=== PATIENT | female | born 1935 | race Caucasian/White ===

== ENCOUNTER 2016-08-05 06:41 | Inpatient (IN) | payer MEDICARE, MEDICAID ==
--- NOTE | 2016-08-05 06:54 | ERNOTE ---
Medical Problem HPI - Narrative Date of Service: 08/05/16 - General Chief Complaint: General Assessment Time Seen by Provider: 08/05/16 06:53 Source: EMS, half-way records - Immun/Allergies/Home Medications Immunizations: IMMUNIZATION HX Immunizations Up to Date Yes History of Influenza Vaccine Yes Hx Pneumococcal Vaccination Yes Allergies/Adverse Reactions: Allergies aspirin Allergy (Verified 08/05/16 06:53) ulcers dextran 70 *RETIRED-02/23/13 [From Visine] Allergy (Verified 08/05/16 06:53) glycerin [From Visine] Allergy (Verified 08/05/16 06:53) hypromellose *RETIRED-02/23/13 [From Visine] Allergy (Verified 08/05/16 06:53) ibuprofen Allergy (Verified 08/05/16 06:53) ulcers Penicillins Allergy (Verified 08/05/16 06:53) polyethylene glycol 400 [From Visine] Allergy (Verified 08/05/16 06:53) povidone [From Visine] Allergy (Verified 08/05/16 06:53) tetrahydrozoline HCl [From Visine] Allergy (Verified 08/05/16 06:53) Home Medications: HOME MEDICATIONS Alendronate Sodium [Fosamax] 70 mg PO Q7D 11/29/12 [Last Taken Unknown] Clorazepate Dipotassium [Tranxene] 3.75 mg PO HS 11/29/12 [Last Taken Unknown] Lisinopril/Hydrochlorothiazide [Lisinopril-Hctz 20-12.5 mg Tab] 0.5 tab PO DAILY 11/29/12 [Last Taken Unknown] Simvastatin [Zocor] 40 mg PO DAILY 11/29/12 [Last Taken Unknown] Calcium & Magnesium Carbonate [Antacid Gelatin Caplet] 1 each PO TID 01/16/14 [ Last Taken Unknown] Flaxseed Oil [Flax Oil] 1,000 mg PO DAILY 01/16/14 [Last Taken Unknown] Multivits,Ca,Minerals/Iron/FA [Therapeutic-M Caplet] 1 each PO TID 01/16/14 [ Last Taken Unknown] Mv-Mn/Iron/FA/Herbal Cmplx#190 [Vitamin D3 Complete Caplet] 1 each PO DAILY [Last Taken Unknown] Potassium Chloride 20 meq PO BID 01/16/14 [Last Taken Unknown] - History of Present History Narrative: confusion and shortness of breath and trembling. Pt has a history of dementia - Patient's Past Medical History Patient History - Medical: Anxiety, Dementia, Osteoporosis, Other Patient History - Cancer: No Hx of Cancer - Social History Smoking Status: Never smoker ED Progress - Vital Signs Patient's Vital Signs:: I have reviewed the patient's vital signs. Vital Signs: Vital Signs 08/05/16 06:48 Temperature 38.1 C H Pulse Rate 103 H Respiratory 16 Rate Blood Pressure 155/88 O2 Sat by Pulse 94 Oximetry - Progress/Reassessment Chief Complaint: General Assessment - Transfer of Care Physician Sign Out: Jennifer Oliva Receiving Physician: Ruth Arteaga Pending Results: Labs, X-ray results Departure - Departure Clinical Impression: Dementia Qualifiers: Dementia type: unspecified type Dementia behavioral disturbance: without behavioral disturbance Qualified Code(s): F03.90 - Unspecified dementia without behavioral disturbance Condition: Good
[2016-08-05 07:08] LABS: Hematocrit 37.9 % (37.0-47.0); Hemoglobin 12.6 gm/dL (12.5-16.0); Mean Cell Volume 85.9 fl (78-100); Mean Corpuscular Hemoglobin 28.6 pg (27-31); Mean Corpuscular Hgb Conc 33.2 g/dl (32-36); Neutrophil # 5.5 K/mm3 (1.3-6.0); Neutrophil % 87.5 % (42-75.0); Platelet Count 145 K/mm3 (150-450); Red Blood Count 4.41 M/mm3 (4.2-5.4); Red Cell Distribution Width 19.1 % (11.5-14.0); White Blood Count 6.3 K/mm3 (4.0-10.5)
[2016-08-05 07:15] LABS: Urine Bilirubin Negative (NEGATIVE); Urine Ketone Negative (NEGATIVE); Urine Nitrite Negative (NEGATIVE); Urine Protein Negative (NEGATIVE); Urine Urobilinogen Normal (NORMAL); Urine pH 6.5 pH (5.0-7.0)
[2016-08-05 07:22] LABS: Urine Appearance Clear; Urine Blood 10 /ul (NEGATIVE); Urine Color Yellow
[2016-08-05 07:22] LABS: Albumin * 2.7 gm/dl (3.4-5.0); Anion Gap 16.4 mmol/L (6.8-13.8); BUN/Creatinine Ratio 17.9 (9.0-21.6); Bilirubin, Total 0.3 mg/dL (0.0-1.1); Ca. Corrected For Albumin 9.7 mg/dL (8.4-10.2); Carbon Dioxide 24.3 mmol/L (24-32.6); Potassium 3.7 mmol/L (3.4-4.6); Total Protein 6.4 gm/dL (6.2-8.2)
[2016-08-05 07:23] LABS: Urine Bacteria TRACE; Urine RBC TRACE /hpf (0-5); Urine WBC None Seen /hpf (0-5)
[2016-08-05] MEDS ORDERED: NORMAL SALINE 1,000 ML IV ONE (07:54)
[2016-08-05] MEDS ORDERED: LEVOFLOXACIN/D5W 500 MG/100 ML BAG IV SCH (08:00)
[2016-08-05] MEDS ORDERED: ACETAMINOPHEN 500 MG TABLET PO ONE (08:22)
[2016-08-05] MEDS: NORMAL SALINE 1,000 ML IV PRN (10:58)
--- NOTE | 2016-08-05 11:40 | HP ---
[id number] 11:39 Chief Complaint: confusion History of Present Illness: Irena Harrington, is an 81-year-old white female, resident of the [facility], with previous medical history of hypertension, hyperlipidemia, osteoarthritis, chronic anemia, who was brought to emergency room today on 08/05/2016 for increasing confusion and disorientation. The patient lives in the [facility] and recently there is being on the endemic of influenza in the facility. She tested positive for influenza A on [facility]2016[facility]. Yesterday the patient was noted to be more confused and disoriented and so patient was sent to the emergency room. In the emergency room the chest x-ray done showed right upper lobe infiltrate as read by the emergency room physician and although she did not have an elevated white blood cell count, neutrophils was elevated at 87%. She was also carrying a fever of 38.3 with a pulse of 103. Her lactic acid was 4. She was admitted for sepsis . S he was given IV Rocephin and Zithromax in the emergency room. Currently patient is still confused, not recognizing me as her doctor. - Patient's Past Medical History Patient History - Medical: Anxiety, Dementia, Osteoporosis, Other Patient History - Cardiac/Respiratory: Hypertension, Hyperlipidemia Patient History - Cancer: No Hx of Cancer Patient History - Surgical Procedures: Appendectomy, Colonoscopy, Other - tonsillectomy - Family History Father Family History - Medical: Family History - Cancer: Lung Mother Family History - Medical: , Dementia, Osteoporosis Family History - Cardiac/Respiratory: Hypertension - Social History Living Situations: [facility] Smoking Status: Never smoker Have you smoked in the past 12 months: No Do you dip or chew tobacco: No Patient requests Smoking Cessation Consult: No Initiate information on Smoking Cessation: No Alcohol Use: none Drug Use: benzodiazepine Review Of Systems (GEN) - Review of Systems Generalized/Overall Review: Present: No Symptoms Reported EENTM: Present: No Symptoms Reported Respiratory: Present: No Symptoms Reported Cardiac: Present: No Symptoms Reported Abdominal: Present: No Symptoms Reported Genitourinary: Present: No Symptoms Reported Musculoskeletal: Present: No Symptoms Reported Neurological: Present: No Symptoms Reported Skin: Present: No Symptoms Reported Endocrine: Present: No Symptoms Reported Misc: All systems neg except as marked - unreliable due to confusion Allergies/Adverse Reactions: Allergies Allergy/AdvReac Type Severity Reaction Status Date / Time aspirin Allergy ulcers Verified 08/05/16 09:42 dextran 70 *RETIRED-02/23/13 Allergy Verified 08/05/16 09:42 [From Visine] glycerin [From Visine] Allergy Verified 08/05/16 09:42 hypromellose Allergy Verified 08/05/16 09:42 *RETIRED-02/23/13 [From Visine] ibuprofen Allergy ulcers Verified 08/05/16 09:42 Penicillins Allergy Verified 08/05/16 09:42 polyethylene glycol 400 Allergy Verified 08/05/16 09:42 [From Visine] povidone [From Visine] Allergy Verified 08/05/16 09:42 tetrahydrozoline HCl Allergy Verified 08/05/16 09:42 [From Visine] Home Medications: HOME MEDICATIONS Alendronate Sodium [Fosamax] 70 mg PO Q7D 11/29/12 [Last Taken 07/30/16 07:00] Simvastatin [Zocor] 40 mg PO HS 11/29/12 [Last Taken 08/04/16 19:00] Potassium Chloride 20 meq PO BID 01/16/14 [Last Taken 08/04/16 19:00] ALPRAZolam [Xanax] 0.25 mg PO TID PRN 08/05/16 [Last Taken Unknown] Acetaminophen [Tylenol] 650 mg PO HS 08/05/16 [Last Taken 08/04/16 19:00] Acetaminophen [Tylenol] 650 mg PO QID PRN 08/05/16 [Last Taken 07/30/16 04:05] Calcium Carbonate [Lboy-Fxc-116] 1,250 mg PO 0700,1500,1900 08/05/16 [Last Taken 08/04/16 19:00] Cholecalciferol (Vitamin D3) [Vitamin D3] 2,000 unit PO DAILY 08/05/16 [Last Taken 08/04/16 07:00] Docusate Sodium [Doc-Q-Lace] 100 mg PO 0700,1500,1900 08/05/16 [Last Taken 08/04 19:00] Ferrous Sulfate [Iron] 325 mg PO BID 08/05/16 [Last Taken 08/04/16 19:00] Folic Acid 1 mg PO DAILY 08/05/16 [Last Taken 08/04/16 07:00] Magnesium 250 mg PO 0700,1500,1900 08/05/16 [Last Taken 08/04/16 19:00] Oseltamivir Phosphate [Tamiflu] 75 mg PO BID 08/05/16 [Last Taken 08/04/16 20:00 ] azaTHIOprine [Imuran] 50 mg PO DAILY 08/05/16 [Last Taken 08/04/16 07:00] predniSONE [Prednisone] 2 tab PO DAILY 08/05/16 [Last Taken 08/04/16 07:00] traMADol HCL [Ultram] 50 mg PO 0700,1500,1900 08/05/16 [Last Taken 08/04/16 19: 00] Exam - Exam Vital Signs: Vital Signs - Last Taken Temp 37.8 C H 08/05/16 09:09 Pulse 98 08/05/16 09:09 Resp 20 08/05/16 09:09 BP 136/70 08/05/16 09:09 Pulse Ox 94 08/05/16 09:09 Constitutional: Present: Alert - AAO x 1, Well developed, Well nourished ENT Exam: Present: hearing grossly normal Eye Exam: bilateral eye: normal inspection, PERRL, EOMI Neck: Present: supple Back Exam: Present: no CVA tenderness Breasts: Present: Exam deferred Respiratory: Present: decreased breath sounds, No rales, No wheezing Cardiovascular/Chest: Present: regular rate, rhythm, no JVD, no murmur Abdomen: Present: Normal bowel sounds, soft, nontender, nondistended Extremity: Present: normal range of motion, no pedal edema Neurologic: Present: community health counselor II-XII nml as tested, no motor/sensory deficits, alert - x 1 Diagnostic Studies: Laboratory Results WBC 6.3 K/mm3 (4.0-10.5) 08/05/16 06:55 RBC 4.41 M/mm3 (4.2-5.4) 08/05/16 06:55 Hgb 12.6 gm/dL (12.5-16.0) 08/05/16 06:55 Hct 37.9 % (37.0-47.0) 08/05/16 06:55 MCV 85.9 fl (78-100) 08/05/16 06:55 MCH 28.6 pg (27-31) 08/05/16 06:55 MCHC 33.2 g/dl (32-36) 08/05/16 06:55 RDW 19.1 % (11.5-14.0) H 08/05/16 06:55 Plt Count 145 K/mm3 (150-450) L 08/05/16 06:55 MPV 9.0 fl (6.0-9.5) 08/05/16 06:55 Immature Gran % (Auto) 1.10 % (0.001-0.429) H 08/05/16 06:55 Immature Gran # (Auto) 0.07 K/mm3 (0.000-0.0310) H 08/05/16 06:55 Neutrophils % 87.5 % (42-75.0) H 08/05/16 06:55 Lymphocytes % 10.4 % (20-51) L 08/05/16 06:55 Monocytes % 0.3 % (0.0-9) 08/05/16 06:55 Eosinophils % 0.5 % (0.0-3.0) 08/05/16 06:55 Basophils % 0.2 % (0.0-1.0) 08/05/16 06:55 Nucleated RBC % 0.0 k/mm3 (0-1) 08/05/16 06:55 Neutrophils # 5.5 K/mm3 (1.3-6.0) 08/05/16 06:55 Lymphocytes # 0.7 k/mm3 (1.5-3.5) L 08/05/16 06:55 Monocytes # 0.0 k/mm3 (0.0-1.0) 08/05/16 06:55 Eosinophils # 0.0 k/mm3 (0.0-0.7) 08/05/16 06:55 Absolute Basophils 0.0 k/mm3 (0.0-0.1) 08/05/16 06:55 Sodium 131 mmol/L (132-142) L 08/05/16 06:55 Plasma Sodium 131 mmol/L (130-142) 08/05/16 06:55 Potassium 3.7 mmol/L (3.4-4.6) 08/05/16 06:55 Chloride 94 mmol/L (97-106) L 08/05/16 06:55 Carbon Dioxide 24.3 mmol/L (24-32.6) 08/05/16 06:55 Anion Gap 16.4 mmol/L (6.8-13.8) H 08/05/16 06:55 BUN 14 mg/dL (3-23) 08/05/16 06:55 Creatinine 0.78 mg/dL (0.4-1.4) 08/05/16 06:55 Est GFR (Non-Af Amer) 75 mL/min (60-130) D 08/05/16 06:55 BUN/Creatinine Ratio 17.9 (9.0-21.6) 08/05/16 06:55 Random Glucose 85 mg/dL (70-110) 08/05/16 06:55 Lactic Acid, Venous 1.2 mmol/L (0.4-2.0) 08/05/16 11:03 Calcium 9.0 mg/dL (7.9-10.9) 08/05/16 06:55 Calcium Adj for Albumin 9.7 mg/dL (8.4-10.2) 08/05/16 06:55 Total Bilirubin 0.3 mg/dL (0.0-1.1) 08/05/16 06:55 AST 25 U/L (0-48) 08/05/16 06:55 ALT 22 U/L (19-67) 08/05/16 06:55 Alkaline Phosphatase 62 U/L (50-170) 08/05/16 06:55 Total Protein 6.4 gm/dL (6.2-8.2) 08/05/16 06:55 Albumin 2.7 gm/dl (3.4-5.0) L 08/05/16 06:55 Urine Color Yellow 08/05/16 07:08 Urine Appearance Clear 08/05/16 07:08 Urine pH 6.5 pH (5.0-7.0) 08/05/16 07:08 Ur Specific [place] 1.010 SP.GR. (1.005-1.010) 08/05/16 07:08 Urine Protein Negative mg/dL (NEGATIVE) 08/05/16 07:08 Urine Glucose (UA) Negative mg/dL (NEGATIVE) 08/05/16 07:08 Urine Ketones Negative mg/dL (NEGATIVE) 08/05/16 07:08 Urine Blood 10 /ul (NEGATIVE) H 08/05/16 07:08 Urine Nitrate Negative (NEGATIVE) 08/05/16 07:08 Urine Bilirubin Negative mg/dl (NEGATIVE) 08/05/16 07:08 Urine Urobilinogen Normal EU/dl (NORMAL) 08/05/16 07:08 Ur Leukocyte Esterase Negative /ul (NEGATIVE) 08/05/16 07:08 Urine RBC Trace /hpf (0-5) 08/05/16 07:08 Urine WBC None seen /hpf (0-5) 08/05/16 07:08 Ur Epithelial Cells None seen /hpf (0-5) 08/05/16 07:08 Urine Bacteria Trace (NONE) 08/05/16 07:08 Urine Culture Comments Culture to follow 08/05/16 07:08 Assessment/Plan - Assessment/Plan (1) Altered mental status Assessment: likely due to acute encephalopathy- toxic/metabolic. Problem: Resolved Qualifiers: Altered mental status type: disorientation Qualified Code(s): R41.0 - Disorientation, unspecified (2) Pneumonia Assessment: continue with Levaquin/ add Cefepipme Problem: Suspected Qualifiers: Pneumonia type: due to unspecified organism Laterality: right Lung location: upper lobe of lung Qualified Code(s): J18.1 - Lobar pneumonia, unspecified organism (3) Hypertension Assessment: diet controlled Problem: Chronic Qualifiers: Hypertension type: essential hypertension Qualified Code(s): I10 - Essential (primary) hypertension (4) Osteoporosis Problem: Chronic (5) Influenza A Assessment: had Tamiflu in the NH Problem: Acute (6) Bacteriuria Problem: Acute
[2016-08-05] MEDS: CEFEPIME HCL 1 GM in DEXTROSE 5 % IN WATER 100 ML IV SCH ×2 (12:38)
[2016-08-05] MEDS: ACETAMINOPHEN 325 MG TABLET PO PRN (19:25)
[2016-08-06] MEDS: CEFEPIME HCL 1 GM in DEXTROSE 5 % IN WATER 100 ML IV SCH ×4 (00:06→11:22)
[2016-08-06] MEDS: ACETAMINOPHEN 325 MG TABLET PO PRN (00:10)
[2016-08-06] MEDS: NORMAL SALINE 1,000 ML IV PRN ×2 (09:00→19:55)
[2016-08-06] MEDS: LEVOFLOXACIN/D5W 500 MG/100 ML BAG IV SCH (09:02)
[2016-08-06] MEDS ORDERED: ALPRAZolam 0.25 MG TABLET PO PRN (09:13)
--- NOTE | 2016-08-06 09:26 | PN ---
Subjective - Date and Time Seen Date: 08/06/16 Time: 08:44 Subjective Narrative: Patient seen sitting up in chair, she is AOX3 no acute distress with a non productive cough. pt denies fever, chills, chest pain, palpitation. Objective - Review of Systems Generalized/Overall Review: Reports: No Symptoms Reported EENTM: Reports: No Symptoms Reported Respiratory: Reports: Cough Cardiac: Reports: No Symptoms Reported Abdominal: Reports: No Symptoms Reported Genitourinary Symptoms: Reports: No Symptoms Reported Musculoskeletal Complaints: Reports: No Symptoms Reported Neurological: Reports: No Symptoms Reported Skin: Reports: Rash - BL inner arms Endocrine: Reports: No Symptoms Reported - Vitals Vitals: Last Vital Signs Temp 36.4 C L 08/06/16 08:01 Pulse 64 08/06/16 08:01 Resp 20 08/06/16 08:01 BP 176/75 08/06/16 08:01 Pulse Ox 98 08/06/16 08:01 - Exam Constitutional: Present: Alert, Oriented x3, Cooperative, Well developed, No distress, Elderly, Thin and frail ENT Exam: Present: moist mucous membranes Neck: Present: full range of motion Breasts: Present: Exam deferred Respiratory: Present: chest non-tender, normal breath sounds, no respiratory distress, decreased breath sounds Cardiovascular/Chest: Present: normal peripheral pulses, regular rate, rhythm, no chest tenderness, no edema Abdomen: Present: Normal bowel sounds, soft, nontender, nondistended /Rectal: Present: Exam deferred Extremity: Present: normal range of motion, non-tender, normal inspection, no pedal edema, no calf tenderness Skin Exam: Present: skin rash - BL inner arms superepidermal bullous Neurologic: Present: oriented x 3 Appearance: Present: appropriate appearance Eye contact: Present: cooperative, good eye contact Thoughts: Present: normal thought pattern Assessment/Plan Plan Narrative: Pneumonia Suspected on CXR On adm WBC - remain WNL Overnight Temp 36.6----->36.4 On adm Lactic acid 4.0----->1.2 pt was diagnosed with influenza A while at longterm and treated with Tamiflu , she have 3 more days left. Encourage use of I/S Blood culture and urine culture gram neg Bacilli,continue with Levaquin and cefepime. Mucinex BID Hypertension This morning BP 176/75 possible due to IVF Will rate of IVF and continue to monitor vital signs. Osteoporosis- stable Problem: Chronic Altered mental status- resolved likely due to acute encephalopathy- toxic/metabolic. Pt with history of dementia Bullous Pemphigoid superepidermal blisters BL inner arms Continue with prednisone VTE ppx: SCD/ ambulate pt Code status Full - Problems/Diagnosis (1) Altered mental status Problem: Resolved Qualifiers: Altered mental status type: disorientation Qualified Code(s): R41.0 - Disorientation, unspecified (2) Dementia Problem: Chronic Qualifiers: Dementia type: unspecified type Dementia behavioral disturbance: without behavioral disturbance Qualified Code(s): F03.90 - Unspecified dementia without behavioral disturbance (3) Hypertension Problem: Chronic Qualifiers: Hypertension type: essential hypertension Qualified Code(s): I10 - Essential (primary) hypertension (4) Pneumonia Problem: Suspected Qualifiers: Pneumonia type: due to unspecified organism Laterality: right Lung location: upper lobe of lung Qualified Code(s): J18.1 - Lobar pneumonia, unspecified organism (5) Bullous pemphigoid Problem: Chronic
[2016-08-06] MEDS: OSELTAMIVIR PHOSPHATE 75 MG CAPSULE PO SCH ×2 (09:59→20:47)
[2016-08-06] MEDS: CALCIUM CARBONATE 500 MG TAB.CHEW PO SCH ×2 (14:41→19:54)
[2016-08-06] MEDS: MAGNESIUM OXIDE 400 MG TABLET PO SCH ×2 (14:41→19:54)
[2016-08-06] MEDS: DOCUSATE SODIUM 100 MG CAPSULE PO SCH ×2 (14:42→19:54)
[2016-08-06] MEDS: POTASSIUM CHLORIDE 20 MEQ TABLET.SA PO SCH (16:28)
[2016-08-06] MEDS: ACETAMINOPHEN 325 MG TABLET PO SCH (20:48)
[2016-08-06] MEDS: SIMVASTATIN 40 MG TABLET PO SCH (20:48)
[2016-08-06] MEDS: FERROUS SULFATE 325 MG TABLET PO SCH (20:48)
[2016-08-07] MEDS: CEFEPIME HCL 1 GM in DEXTROSE 5 % IN WATER 100 ML IV SCH ×4 (01:08→12:28)
[2016-08-07] MEDS ORDERED: hydrALAZINE HCL 25 MG TABLET ONE (01:53)
[2016-08-07] MEDS: hydrALAZINE HCL 50 MG TABLET PO PRN ×2 (02:12→17:50)
[2016-08-07 06:28] LABS: Hematocrit 33.6 % (37.0-47.0); Hemoglobin 11.5 gm/dL (12.5-16.0); Mean Cell Volume 83.6 fl (78-100); Mean Corpuscular Hemoglobin 28.6 pg (27-31); Mean Corpuscular Hgb Conc 34.2 g/dl (32-36); Mean Platelet Volume 9.3 fl (6.0-9.5); Platelet Count 106 K/mm3 (150-450); Red Blood Count 4.02 M/mm3 (4.2-5.4); Red Cell Distribution Width 18.9 % (11.5-14.0); White Blood Count 10.7 K/mm3 (4.0-10.5)
[2016-08-07 06:31] LABS: Total Cells Counted 100
[2016-08-07] MEDS: NORMAL SALINE 1,000 ML IV PRN (06:46)
[2016-08-07] MEDS: MAGNESIUM OXIDE 400 MG TABLET PO SCH ×3 (07:09→18:55)
[2016-08-07] MEDS: CALCIUM CARBONATE 500 MG TAB.CHEW PO SCH ×3 (07:09→18:55)
[2016-08-07] MEDS: DOCUSATE SODIUM 100 MG CAPSULE PO SCH ×3 (07:09→18:55)
[2016-08-07] MEDS: ACETAMINOPHEN 325 MG TABLET PO PRN (07:10)
[2016-08-07 07:12] LABS: Band 12 % (0-2.0); Eosinophil 1 % (0-3); Immature Granulocyte 1 (0-1); Lymphocyte 2 % (20-51); Neutrophil 84 % (42-75)
[2016-08-07 07:15] LABS: Platelet Estimate Decreased (NORMAL)
[2016-08-07 07:24] LABS: Schistocytes 2+
--- NOTE | 2016-08-07 08:08 | PN ---
Subjective - Date and Time Seen Date: 08/07/16 Time: 08:07 Subjective Narrative: Patient is still confused. AAO X 1. T max 37.8. Objective - Review of Systems Generalized/Overall Review: Reports: Fever - low grade EENTM: Reports: No Symptoms Reported Respiratory: Reports: No Symptoms Reported Cardiac: Reports: No Symptoms Reported Abdominal: Reports: No Symptoms Reported Genitourinary Symptoms: Reports: No Symptoms Reported Musculoskeletal Complaints: Reports: No Symptoms Reported Neurological: Reports: No Symptoms Reported Skin: Reports: No Symptoms Reported Endocrine: Reports: No Symptoms Reported Misc: All systems neg except as marked - ROS is unobtainable due to her confusion - Vitals Vitals: Last Vital Signs Temp 37.8 C H 08/07/16 07:02 Pulse 79 08/07/16 07:02 Resp 18 08/07/16 07:02 BP 128/66 08/07/16 07:02 Pulse Ox 97 08/07/16 07:02 - Abnormal Lab Findings Abnormal Lab Findings: Abnormal Lab Results 08/07/16 Range/Units 05:40 WBC 10.7 H D (4.0-10.5) K/mm3 RBC 4.02 L (4.2-5.4) M/mm3 Hgb 11.5 L (12.5-16.0) gm/dL Hct 33.6 L (37.0-47.0) % RDW 18.9 H (11.5-14.0) % Plt Count 106 L (150-450) K/mm3 Neutrophils % (Manual) 84 H (42-75) % Band Neuts % (Manual) 12 H (0-2.0) % Lymphocytes % (Manual) 2 L (20-51) % Neutrophils # (Manual) 9.0 H (1.3-6.0) K/mm3 Lymphocytes # (Manual) 0.2 L (1.5-3.5) k/mm3 Platelet Estimate Decreased L (NORMAL) - Exam Constitutional: Present: Alert - AAO x 1 ENT Exam: Present: hearing grossly normal Neck: Present: supple Breasts: Present: Exam deferred Respiratory: Present: decreased breath sounds, No rales, No wheezing Cardiovascular/Chest: Present: regular rate, rhythm, no JVD, no murmur Abdomen: Present: Normal bowel sounds, soft, nontender, nondistended Extremity: Present: no calf tenderness, pedal edema Assessment/Plan - Problems/Diagnosis (1) Altered mental status Problem: Resolved Qualifiers: Altered mental status type: disorientation Qualified Code(s): R41.0 - Disorientation, unspecified Narrative: due to acute encephalopathy on top of possible baseline dementia (2) Pneumonia Problem: Suspected Qualifiers: Pneumonia type: due to unspecified organism Laterality: right Lung location: upper lobe of lung Qualified Code(s): J18.1 - Lobar pneumonia, unspecified organism Narrative: awaiting C & S - Gram negative bacilli . continue with IV levaquin and Cefepime. (3) Hypertension Problem: Chronic Qualifiers: Hypertension type: essential hypertension Qualified Code(s): I10 - Essential (primary) hypertension (4) Osteoporosis Problem: Chronic (5) Influenza A Problem: Acute (6) Bacteriuria Problem: Acute
[2016-08-07] MEDS: CHOLECALCIFEROL 1,000 UNIT CAPSULE PO SCH (08:58)
[2016-08-07] MEDS: FOLIC ACID 1 MG TABLET PO SCH (08:59)
[2016-08-07] MEDS: predniSONE 20 MG TABLET PO SCH (08:59)
[2016-08-07] MEDS: OSELTAMIVIR PHOSPHATE 75 MG CAPSULE PO SCH ×2 (08:59→20:21)
[2016-08-07] MEDS: azaTHIOprine 50 MG TABLET PO SCH (08:59)
[2016-08-07] MEDS: LEVOFLOXACIN/D5W 500 MG/100 ML BAG IV SCH (08:59)
[2016-08-07] MEDS: POTASSIUM CHLORIDE 20 MEQ TABLET.SA PO SCH ×2 (08:59→17:06)
[2016-08-07] MEDS: FERROUS SULFATE 325 MG TABLET PO SCH ×2 (09:00→20:21)
[2016-08-07] MEDS: ACETAMINOPHEN 325 MG TABLET PO SCH (20:21)
[2016-08-07] MEDS: SIMVASTATIN 40 MG TABLET PO SCH (20:21)
[2016-08-08] MEDS: CEFEPIME HCL 1 GM in DEXTROSE 5 % IN WATER 100 ML IV SCH ×6 (00:49→23:36)
[2016-08-08] MEDS: NORMAL SALINE 1,000 ML IV PRN (05:24)
[2016-08-08] MEDS: MAGNESIUM OXIDE 400 MG TABLET PO SCH ×3 (07:08→18:45)
[2016-08-08] MEDS: DOCUSATE SODIUM 100 MG CAPSULE PO SCH ×3 (07:08→18:45)
[2016-08-08] MEDS: CALCIUM CARBONATE 500 MG TAB.CHEW PO SCH ×3 (07:08→18:45)
[2016-08-08] MEDS: ACETAMINOPHEN 325 MG TABLET PO PRN ×2 (07:16→12:55)
[2016-08-08] MEDS: OSELTAMIVIR PHOSPHATE 75 MG CAPSULE PO SCH ×2 (08:53→20:45)
[2016-08-08] MEDS: azaTHIOprine 50 MG TABLET PO SCH (08:53)
[2016-08-08] MEDS: CHOLECALCIFEROL 1,000 UNIT CAPSULE PO SCH (08:53)
[2016-08-08] MEDS: predniSONE 20 MG TABLET PO SCH (08:53)
[2016-08-08] MEDS: POTASSIUM CHLORIDE 20 MEQ TABLET.SA PO SCH ×2 (08:53→16:33)
[2016-08-08] MEDS: FOLIC ACID 1 MG TABLET PO SCH (08:53)
[2016-08-08] MEDS: LEVOFLOXACIN/D5W 500 MG/100 ML BAG IV SCH (08:53)
[2016-08-08] MEDS: FERROUS SULFATE 325 MG TABLET PO SCH ×2 (08:53→20:45)
--- NOTE | 2016-08-08 12:07 | PN ---
Subjective - Date and Time Seen Date: 08/08/16 Time: 12:04 Subjective Narrative: Patient continues to be confused. T max 37.8 Objective - Review of Systems Generalized/Overall Review: Reports: Weakness, Fever. Denies: Chills EENTM: Reports: No Symptoms Reported Respiratory: Reports: No Symptoms Reported Cardiac: Reports: No Symptoms Reported Abdominal: Reports: No Symptoms Reported Genitourinary Symptoms: Reports: No Symptoms Reported Musculoskeletal Complaints: Reports: No Symptoms Reported Neurological: Reports: No Symptoms Reported Skin: Reports: No Symptoms Reported Endocrine: Reports: No Symptoms Reported Misc: All systems neg except as marked - ROS is unbreliable due to confusion - Vitals Vitals: Last Vital Signs Temp 36.7 C 08/08/16 10:30 Pulse 65 08/08/16 10:30 Resp 20 08/08/16 10:30 BP 159/71 08/08/16 10:30 Pulse Ox 98 08/08/16 10:30 - Exam Constitutional: Present: Alert - AAO x 1 ENT Exam: Present: hearing grossly normal Neck: Present: supple Breasts: Present: Exam deferred Respiratory: Present: decreased breath sounds, No rales, No wheezing Cardiovascular/Chest: Present: regular rate, rhythm, no murmur Abdomen: Present: Normal bowel sounds, soft, nontender, nondistended Extremity: Present: no pedal edema, no calf tenderness Assessment/Plan - Problems/Diagnosis (1) Altered mental status Problem: Resolved Qualifiers: Altered mental status type: disorientation Qualified Code(s): R41.0 - Disorientation, unspecified Narrative: due to acute encephalopathy, toxic /metabolicc with E.Coli bacrteremia/ septicemia. (2) Pneumonia Problem: Suspected Qualifiers: Pneumonia type: due to unspecified organism Laterality: right Lung location: upper lobe of lung Qualified Code(s): J18.1 - Lobar pneumonia, unspecified organism Narrative: will recheck CXR (3) Hypertension Problem: Chronic Qualifiers: Hypertension type: essential hypertension Qualified Code(s): I10 - Essential (primary) hypertension (4) Osteoporosis Problem: Chronic (5) Influenza A Problem: Acute (6) Bacteriuria Problem: Acute Narrative: E.Coli UTI., likely source of bacteremia. will radha BARBARA.
[2016-08-08 13:11] LABS: Hematocrit 34.8 % (37.0-47.0); Hemoglobin 11.7 gm/dL (12.5-16.0); Mean Cell Volume 84.1 fl (78-100); Mean Corpuscular Hemoglobin 28.3 pg (27-31); Mean Corpuscular Hgb Conc 33.6 g/dl (32-36); Mean Platelet Volume 9.8 fl (6.0-9.5); Neutrophil # 5.9 K/mm3 (1.3-6.0); Neutrophil % 88.6 % (42-75.0); Platelet Count 112 K/mm3 (150-450); Red Blood Count 4.14 M/mm3 (4.2-5.4); White Blood Count 6.7 K/mm3 (4.0-10.5)
[2016-08-08 13:20] LABS: Anion Gap 13.7 mmol/L (6.8-13.8); BUN/Creatinine Ratio 13.6 (9.0-21.6); Calcium * 8.1 mg/dL (7.9-10.9); Carbon Dioxide 21.4 mmol/L (24-32.6); Estimated Creat Clear 50.4; Potassium 3.1 mmol/L (3.4-4.6)
[2016-08-08] MEDS: ACETAMINOPHEN 325 MG TABLET PO SCH (20:45)
[2016-08-08] MEDS: SIMVASTATIN 40 MG TABLET PO SCH (20:45)
[2016-08-09] MEDS: DOCUSATE SODIUM 100 MG CAPSULE PO SCH ×3 (08:44→19:59)
[2016-08-09] MEDS: CALCIUM CARBONATE 500 MG TAB.CHEW PO SCH ×3 (08:44→19:58)
[2016-08-09] MEDS: FOLIC ACID 1 MG TABLET PO SCH (08:45)
[2016-08-09] MEDS: MAGNESIUM OXIDE 400 MG TABLET PO SCH ×3 (08:45→19:59)
[2016-08-09] MEDS: POTASSIUM CHLORIDE 20 MEQ TABLET.SA PO SCH ×2 (08:45→17:22)
[2016-08-09] MEDS: predniSONE 20 MG TABLET PO SCH (08:45)
[2016-08-09] MEDS: azaTHIOprine 50 MG TABLET PO SCH (08:45)
[2016-08-09] MEDS: FERROUS SULFATE 325 MG TABLET PO SCH ×2 (08:45→20:00)
[2016-08-09] MEDS: CHOLECALCIFEROL 1,000 UNIT CAPSULE PO SCH (08:45)
[2016-08-09] MEDS: CEFEPIME HCL 1 GM in DEXTROSE 5 % IN WATER 100 ML IV SCH ×4 (12:06→23:49)
[2016-08-09] MEDS: SIMVASTATIN 40 MG TABLET PO SCH (20:01)
[2016-08-09] MEDS: ACETAMINOPHEN 325 MG TABLET PO SCH (20:01)
[2016-08-10 02:18] VITALS: BP 166/83
[2016-08-10] MEDS: DOCUSATE SODIUM 100 MG CAPSULE PO SCH (07:27)
[2016-08-10] MEDS: CALCIUM CARBONATE 500 MG TAB.CHEW PO SCH (07:27)
[2016-08-10] MEDS: MAGNESIUM OXIDE 400 MG TABLET PO SCH (07:27)
[2016-08-10 07:52] LABS: Hematocrit 36.1 % (37.0-47.0); Hemoglobin 12.3 gm/dL (12.5-16.0); Mean Cell Volume 84.1 fl (78-100); Mean Corpuscular Hemoglobin 28.7 pg (27-31); Mean Corpuscular Hgb Conc 34.1 g/dl (32-36); Mean Platelet Volume 9.6 fl (6.0-9.5); Neutrophil # 7.2 K/mm3 (1.3-6.0); Platelet Count 155 K/mm3 (150-450); Red Blood Count 4.29 M/mm3 (4.2-5.4); Red Cell Distribution Width 19.1 % (11.5-14.0); White Blood Count 9.5 K/mm3 (4.0-10.5)
[2016-08-10 08:02] LABS: Anion Gap 14.3 mmol/L (6.8-13.8); BUN/Creatinine Ratio 22.4 (9.0-21.6); Calcium * 8.5 mg/dL (7.9-10.9); Carbon Dioxide 22.4 mmol/L (24-32.6); Estimated Creat Clear 49.7; Potassium 3.7 mmol/L (3.4-4.6)
--- NOTE | 2016-08-10 08:13 | DS ---
(1) Altered mental status Problem: Resolved Qualifiers: Altered mental status type: disorientation Qualified Code(s): R41.0 - Disorientation, unspecified (2) Pneumonia Problem: Suspected Qualifiers: Pneumonia type: due to unspecified organism Laterality: right Lung location: upper lobe of lung Qualified Code(s): J18.1 - Lobar pneumonia, unspecified organism (3) Hypertension Problem: Chronic Qualifiers: Hypertension type: essential hypertension Qualified Code(s): I10 - Essential (primary) hypertension (4) Osteoporosis Problem: Chronic (5) Influenza A Problem: Acute (6) Septicemia Diagnosis(s): with E.Coli bacteremia Problem: Resolved (7) Urinary tract infection Diagnosis(s): E.Coli on culture Problem: Resolved Qualifiers: Urinary tract infection type: acute cystitis Hematuria presence: without hematuria Qualified Code(s): N30.00 - Acute cystitis without hematuria Description of Stay: Irena Harrington, is an 81-year-old white female, resident of the [facility], with previous medical history of hypertension, hyperlipidemia, osteoarthritis, chronic anemia, who was brought to emergency room today on 08/05/2016 for increasing confusion and disorientation. The patient lives in the [facility] where recently there was a number of residents with influenza in the facility. She tested positive for influenza A on 08/03/2016[facility]. Yesterday the patient was noted to be more confused and disoriented and so patient was sent to the emergency room. In the emergency room the chest x-ray done showed right upper lobe infiltrate as read by the emergency room physician and although she did not have an elevated white blood cell count, neutrophils was elevated at 87%. She was also carrying a fever of 38.3 with a pulse of 103. Her lactic acid was 4. She was admitted for sepsis . She was given IV Rocephin and Zithromax in the emergency room. Her Antibiotic was changed to IV Levaquin/ Cefepime for a suspected pneumonia. Her blood x 2 and urine culture grew E.Coli. Iv cefepime was continued per sensitivity. She is now stable to be discharge to the DC. Procedures Performed: none Discharge Disposition: [facility] Disposition: [facility] Condition: Good Discharge Activity: Activity as tolerated Discharge Diet: Low salt Prescriptions (Any new or edited meds): Levofloxacin [Levaquin] 750 mg PO DAILY #5 tablet Complete Home Medications List: Complete Home Medication List: Alendronate Sodium [Fosamax] 70 mg PO Q7D 11/29/12 Simvastatin [Zocor] 40 mg PO HS 11/29/12 ALPRAZolam [Xanax] 0.25 mg PO TID PRN 08/05/16 Acetaminophen [Tylenol] 650 mg PO HS 08/05/16 Acetaminophen [Tylenol] 650 mg PO QID PRN 08/05/16 Calcium Carbonate [Nhof-Kwe-874] 1,250 mg PO 0700,1500,1900 08/05/16 Cholecalciferol (Vitamin D3) [Vitamin D3] 2,000 unit PO DAILY 08/05/16 Docusate Sodium [Doc-Q-Lace] 100 mg PO 0700,1500,1900 08/05/16 Ferrous Sulfate [Iron] 325 mg PO BID 08/05/16 Folic Acid 1 mg PO DAILY 08/05/16 Magnesium 250 mg PO 0700,1500,1900 08/05/16 azaTHIOprine [Imuran] 50 mg PO DAILY 08/05/16 predniSONE [Prednisone] 2 tab PO DAILY 08/05/16 traMADol HCL [Ultram] 50 mg PO 0700,1500,1900 08/05/16 Levofloxacin [Levaquin] 750 mg PO DAILY #5 tablet 08/10/16
[2016-08-10] MEDS: POTASSIUM CHLORIDE 20 MEQ TABLET.SA PO SCH (09:27)
[2016-08-10] MEDS: hydrALAZINE HCL 50 MG TABLET PO PRN (09:27)
[2016-08-10] MEDS: FERROUS SULFATE 325 MG TABLET PO SCH (09:27)
[2016-08-10] MEDS: CHOLECALCIFEROL 1,000 UNIT CAPSULE PO SCH (09:27)
[2016-08-10] MEDS: predniSONE 20 MG TABLET PO SCH (09:28)
[2016-08-10] MEDS: azaTHIOprine 50 MG TABLET PO SCH (09:28)
[2016-08-10] MEDS: FOLIC ACID 1 MG TABLET PO SCH (09:28)
--- NOTE | 2016-08-20 08:53 | PN ---
Subjective - Date and Time Seen Date: 08/20/16 Time: 08:45 Subjective Narrative: This is a late entry. I saw and examined the patient on 08/09/2016 but forgot to write my progress notes that day. The patient is feeling better. She remembers me as her doctor. Objective - Review of Systems Generalized/Overall Review: Denies: Chills, Fever EENTM: Reports: No Symptoms Reported Respiratory: Denies: Cough, Shortness of Breath Cardiac: Denies: Chest Pain, Edema, Palpitations Abdominal: Denies: Nausea, Vomiting Genitourinary Symptoms: Denies: Urgency, Frequency Musculoskeletal Complaints: Denies: Joint Pain - Vitals Vitals: Last Vital Signs Temp 36.4 C L 08/10/16 08:30 Pulse 59 L 08/10/16 09:27 Resp 18 08/10/16 08:30 BP 166/83 08/10/16 09:27 Pulse Ox 98 08/10/16 08:30 - Exam Constitutional: Present: Alert, Cooperative - AAO X 2 ENT Exam: Present: hearing grossly normal Neck: Present: supple Breasts: Present: Exam deferred Respiratory: Present: decreased breath sounds, No rales, No wheezing Cardiovascular/Chest: Present: regular rate, rhythm, no JVD, no murmur Abdomen: Present: Normal bowel sounds, soft, nontender, nondistended Extremity: Present: no pedal edema, no calf tenderness Assessment/Plan - Problems/Diagnosis (1) Altered mental status Problem: Resolved Qualifiers: Altered mental status type: disorientation Qualified Code(s): R41.0 - Disorientation, unspecified Narrative: secondary to acute toxic encephalopathy with E. Coli bactermia/septicemia- resolved (2) Pneumonia Problem: Suspected Qualifiers: Pneumonia type: due to unspecified organism Laterality: right Lung location: upper lobe of lung Qualified Code(s): J18.1 - Lobar pneumonia, unspecified organism Narrative: Follow CXR showed bibasilar opacities likely atelectasis . correlate for airspace disease. (3) Hypertension Problem: Chronic Qualifiers: Hypertension type: essential hypertension Qualified Code(s): I10 - Essential (primary) hypertension Narrative: controlled (4) Osteoporosis Problem: Chronic (5) Influenza A Problem: Acute Narrative: had tamiflu per protocol (6) Septicemia Problem: Resolved Narrative: E.Coli bacteremia/septicemia. Continue with antibiotics. (7) Urinary tract infection Problem: Resolved Qualifiers: Urinary tract infection type: acute cystitis Hematuria presence: without hematuria Qualified Code(s): N30.00 - Acute cystitis without hematuria Narrative: E.Coli UTI. Continue with Antibiotics
== END 2016-08-10 11:40 | DRG 871 ==
LOC: ER 06:41 → MS 08:11 → OBSVTOIN 08-06 09:25
PROVIDERS: ADMIT Internal Medicine; ATTEND Internal Medicine
DX: A41.51 Sepsis due to Escherichia coli [E. coli] (principal); J18.1 Lobar pneumonia, unspecified organism; G93.41 Metabolic encephalopathy; N30.00 Acute cystitis without hematuria; L12.0 Bullous pemphigoid; R65.20 Severe sepsis without septic shock; J11.1 Influenza due to unidentified influenza virus with other respiratory manifestations; I10 Essential (primary) hypertension; E78.5 Hyperlipidemia, unspecified; B96.20 Unspecified Escherichia coli [E. coli] as the cause of diseases classified elsewhere
CPT/HCPCS: 36415; 71010; 76770; 80048; 80053; 81001; 83605; 85007; 85025; 87040; 87081; 87086; 96365; 99283; G0378

== ENCOUNTER 2016-10-10 17:22 | Inpatient (IN) | payer MEDICARE, MEDICAID ==
[2016-10-10 17:51] LABS: Hematocrit 34.8 % (37.0-47.0); Mean Cell Volume 86.4 fl (78-100); Mean Corpuscular Hemoglobin 27.3 pg (27-31); Mean Corpuscular Hgb Conc 31.6 g/dl (32-36); Mean Platelet Volume 9.1 fl (6.0-9.5); Neutrophil # 8.2 K/mm3 (1.3-6.0); Neutrophil % 85.2 % (42-75.0); Platelet Count 247 K/mm3 (150-450); Red Blood Count 4.03 M/mm3 (4.2-5.4); Red Cell Distribution Width 15.3 % (11.5-14.0); White Blood Count 9.6 K/mm3 (4.0-10.5)
[2016-10-10 17:56] LABS: Urine Bilirubin 1 mg/dl (NEGATIVE); Urine Blood Negative /ul (NEGATIVE); Urine Ketone 5 mg/dL (NEGATIVE); Urine Nitrite Negative (NEGATIVE); Urine Protein 100 mg/dL (NEGATIVE); Urine Specific Gravity 1.025 SP.GR. (1.005-1.010); Urine Urobilinogen Normal (NORMAL)
[2016-10-10 18:05] LABS: Albumin * 1.9 gm/dl (3.4-5.0); BUN/Creatinine Ratio 30.5 (9.0-21.6); Bilirubin, Total 0.3 mg/dL (0.0-1.1); Ca. Corrected For Albumin 10.3 mg/dL (8.4-10.2); Calcium * 8.9 mg/dL (7.9-10.9); Carbon Dioxide 26.8 mmol/L (24-32.6); Potassium 3.8 mmol/L (3.4-4.6); Total Protein 5.3 gm/dL (6.2-8.2)
[2016-10-10 18:10] LABS: Urine Appearance Clear; Urine Bacteria 4+; Urine Color Dark Yellow; Urine Mucus Few - 1+; Urine RBC None Seen /hpf (0-5); Urine WBC 0-5 /hpf (0-5)
--- NOTE | 2016-10-10 18:11 | ERNOTE ---
Medical Problem HPI - General Chief Complaint: General Assessment Source: RN notes reviewed, senior care records Exam Limitations: clinical condition - Immun/Allergies/Home Medications Immunizations: IMMUNIZATION HX Immunizations Up to Date Yes History of Influenza Vaccine Yes Hx Pneumococcal Vaccination Yes Allergies/Adverse Reactions: Allergies aspirin Allergy (Verified 10/10/16 17:35) ulcers dextran 70 *RETIRED-02/23/13 [From Visine] Allergy (Verified 10/10/16 17:35) glycerin [From Visine] Allergy (Verified 10/10/16 17:35) hypromellose *RETIRED-02/23/13 [From Visine] Allergy (Verified 10/10/16 17:35) ibuprofen Allergy (Verified 10/10/16 17:35) ulcers Penicillins Allergy (Verified 10/10/16 17:35) polyethylene glycol 400 [From Visine] Allergy (Verified 10/10/16 17:35) povidone [From Visine] Allergy (Verified 10/10/16 17:35) tetrahydrozoline HCl [From Visine] Allergy (Verified 10/10/16 17:35) Home Medications: HOME MEDICATIONS Alendronate Sodium [Fosamax] 70 mg PO MO 11/29/12 [Last Taken 07/30/16 07:00] Simvastatin [Zocor] 40 mg PO HS 11/29/12 [Last Taken 08/04/16 19:00] ALPRAZolam [Xanax] 0.25 mg PO TID PRN 08/05/16 [Last Taken Unknown] Acetaminophen [Tylenol] 650 mg PO HS 08/05/16 [Last Taken 08/04/16 19:00] Acetaminophen [Tylenol] 650 mg PO QID PRN 08/05/16 [Last Taken 07/30/16 04:05] Calcium Carbonate [Jxja-Owy-490] 1,250 mg PO 0700,1500,1900 08/05/16 [Last Taken 08/04/16 19:00] Cholecalciferol (Vitamin D3) [Vitamin D3] 2,000 unit PO DAILY 08/05/16 [Last Taken 08/04/16 07:00] Docusate Sodium [Doc-Q-Lace] 100 mg PO 0700,1500,1900 08/05/16 [Last Taken 08/04 19:00] Ferrous Sulfate [Iron] 325 mg PO BID 08/05/16 [Last Taken 08/04/16 19:00] Folic Acid 1 mg PO DAILY 08/05/16 [Last Taken 08/04/16 07:00] Magnesium 250 mg PO 0700,1500,1900 08/05/16 [Last Taken 08/04/16 19:00] azaTHIOprine [Imuran] 50 mg PO DAILY 08/05/16 [Last Taken 08/04/16 07:00] predniSONE [Prednisone] 10 mg PO DAILY 08/05/16 [Last Taken 08/04/16 07:00] traMADol HCL [Ultram] 50 mg PO 0700,1500,1900 08/05/16 [Last Taken 08/04/16 19: 00] Mupirocin 1 appl TP DAILY PRN 10/10/16 [Last Taken Unknown] - History of Present History Narrative: Pt brought from the [facility] with report of pt being less responsive today Timing: constant Severity: moderate Review of Systems - Narrative Narrative: No Other information from PA - Patient's Past Medical History Patient History - Medical: Anemia, Anxiety, Dementia, Osteoporosis, Other Patient History - Cardiac/Respiratory: Hypertension, Hyperlipidemia, Other Patient History - Cancer: No Hx of Cancer Patient History - Surgical Procedures: Appendectomy, Colonoscopy, Other Patient History - Other: None LMP (females 10-50): Menopausal - Family History Father Family History - Medical: Mother Family History - Medical: , Dementia, Osteoporosis Family History - Cardiac/Respiratory: Hypertension - Social History Living Situations: senior care Abuse History: No History of abuse Psych History: Hx of Anxiety Alcohol Use: none Drug Use: benzodiazepine - Immunizations Immunizations Up to Date: Yes Hx Pneumococcal Vaccination: Yes History of Influenza Vaccine: Yes Physical Exam - Physical Exam General Appearance: Present: wd/wn, no apparent distress, lethargic - attempts to answer questions but only with unitelligible sounds. Ears, Nose, Throat: Present: normal ENT inspection, normal pharynx Neck: Present: normal inspection, nontender Respiratory: Present: no respiratory distress, normal breath sounds, no accessory muscle use, lungs clear Cardiovascular/Chest: Present: regular rate, rhythm, no murmur Gastrointestinal/Abdominal: Present: tenderness - palpation of epigastric area elicits moaning and is moderately firm, abnormal bowel sounds - high pitched bowel sounds in epigastrium and above in the chest Extremity Exam: Present: non-tender, no edema Neurological Exam: Present: other - Pt obeyed command to open her mouth but not other commands. Skin Exam: Present: normal color, warm/dry ED Progress - Results and Orders Patient's Lab Results:: I have reviewed the patient's lab results. Results and Orders: Laboratory Tests 10/10/16 10/10/16 10/10/16 17:45 17:45 17:45 WBC 9.6 Hgb 11.0 L Hct 34.8 L Plt Count 247 Neutrophils % 85.2 H Sodium 140 Potassium 3.8 Chloride 103 Carbon Dioxide 26.8 Anion Gap 14.0 H BUN 43 H Creatinine 1.41 H D Est GFR (Non-Af Amer) 38 L D Random Glucose 166 H Lactic Acid, Venous Calcium 8.9 Total Bilirubin 0.3 AST 21 ALT 19 Alkaline Phosphatase 150 Total Protein 5.3 L Albumin 1.9 L Amylase Lipase Urine Color Dark yellow Urine Appearance Clear Urine pH 7.0 Ur Specific M[place]ett 1.025 Urine Protein 100 H Urine Glucose (UA) Negative Urine Ketones 5 Urine Blood Negative Urine Nitrate Negative Urine Bilirubin 1 H Urine Ictotest Negative Prot Sulfosalicylic Acd 1+ Urine Urobilinogen Normal Ur Leukocyte Esterase Negative Urine RBC None seen Urine WBC 0-5 Ur Epithelial Cells None seen Urine Bacteria 4+ H Fine Granular Casts 10-25 H Urine Mucus Few - 1+ H Urine Culture Comments No culture indicated 10/10/16 10/10/16 17:45 17:45 WBC Hgb Hct Plt Count Neutrophils % Sodium Potassium Chloride Carbon Dioxide Anion Gap BUN Creatinine Est GFR (Non-Af Amer) Random Glucose Lactic Acid, Venous 4.0 H* Calcium Total Bilirubin AST ALT Alkaline Phosphatase Total Protein Albumin Amylase 59 Lipase 295 Urine Color Urine Appearance Urine pH Ur Specific M[place] Urine Protein Urine Glucose (UA) Urine Ketones Urine Blood Urine Nitrate Urine Bilirubin Urine Ictotest Prot Sulfosalicylic Acd Urine Urobilinogen Ur Leukocyte Esterase Urine RBC Urine WBC Ur Epithelial Cells Urine Bacteria Fine Granular Casts Urine Mucus Urine Culture Comments - Vital Signs Patient's Vital Signs:: I have reviewed the patient's vital signs. Vital Signs: Vital Signs 10/10/16 10/10/16 17:23 17:39 Temperature 37.2 C Pulse Rate 110 H 107 H Respiratory 33 H 35 H Rate Blood Pressure 92/56 102/58 O2 Sat by Pulse 97 95 Oximetry - X-Ray X-Ray #1 X-Ray: chest Interpretation: Interp. by me X-ray Comments: LLL pneumonia, no effusion or pneumothorax - Progress/Reassessment Chief Complaint: General Assessment Progress Note-Subjective: 10/10/16 18:30 spoke with Lara CHARLES hospitalist. She agrees with admit. Departure - Departure Clinical Impression: Pneumonia Qualifiers: Pneumonia type: due to unspecified organism Laterality: left Lung location: lower lobe of lung Qualified Code(s): J18.1 - Lobar pneumonia, unspecified organism Disposition: [facility] Condition: Serious
--- OUTSIDE RECORDS SUMMARY | 2016-10-10 18:13 | XMS REPORT | Continuity of Care Document ---
:1935 Author Organization [facility] ([facility]) [place] [address] Phone [phone] Care Team Providers Name Role Phone Unavailable Primary Care Provider Unavailable Source Comments This disclosure is being made pursuant to the Care Everywhere program, applicable federal and state laws, and may not contain all informaitonavailable regarding this patient.[facility] ([facility]) Active Allergies and Adverse Reactions Not on File Current Medications Not on file Active Problems Not on file Social History Tobacco Use Types Packs/Day Years Used Date Never Assessed Plan of Care Health Maintenance Due Date Last Done Comments Hepatitis B Vaccine (1 of 3 - Primary Series) 1935 Tdap Vaccine 1946 Lipid Disorder Screening 1953 Td Vaccine 1953 Colonoscopy 03/11/1985 Zoster Vaccine 1995 Osteoporosis Screening (DXA Bone Density) 2000 Pneumococcal Vaccine (1 of 2 - PCV13) 2000 Influenza Vaccine: Seasonal (#1) 02/20/2016 Results from Last 3 Months Not on file
[2016-10-10 18:20] LABS: Amylase * 59 U/L (25-115); Lipase 295 U/L (73-393)
[2016-10-10] MEDS ORDERED: NORMAL SALINE 1,000 ML IV PRN (18:22)
[2016-10-10] MEDS: NORMAL SALINE IV PRN (18:26)
[2016-10-10] MEDS ORDERED: CEFEPIME HCL 1 GM in DEXTROSE 5 % IN WATER 100 ML IV ONE ×2 (18:45)
--- OUTSIDE RECORDS SUMMARY | 2016-10-10 18:56 | XMS REPORT | Continuity of Care Document ---
:1935 Author Organization [facility] ([facility]) [place] [address] Phone [phone] Care Team Providers Name Role Phone Unavailable Primary Care Provider Unavailable Source Comments This disclosure is being made pursuant to the Care Everywhere program, applicable federal and state laws, and may not contain all informaitonavailable regarding this patient.[facility] ([facility]) Active Allergies and Adverse Reactions Not on [...]
[2016-10-10] MEDS ORDERED: ALPRAZolam 0.25 MG TABLET PO PRN (20:13)
[2016-10-10] MEDS ORDERED: LEVOFLOXACIN/D5W 750 MG/150 ML BAG IV SCH (20:15)
[2016-10-10] MEDS ORDERED: MUPIROCIN 22 APPL TUBE TP PRN (20:45)
--- NOTE | 2016-10-10 20:55 | HP ---
<Nery Mcrae - Last Filed: 10/11/16 07:30> Chief Complaint - Chief Complaint Date of Service: 10/10/16 Time of Service: 20:47 Chief Complaint: 'Less responsive'. Source of HPI- Pt; unreliable due to AMS, ER Provider notes. History of Present Illness: Ms. Harrington is a 81-yr-old WM pt with a PMH of: Anemia, Anxiety, Athritis, Dementia , HLD, HTN, Osteoarthritis & Osteoporosis. History is unobtainable from the pt due to cognitive/memory impairment. She is a [facility] care resident at [facility]. Nursing staff reported that pt has not been herself lately. Even though she is wheel chair bound, she normally propels around and interacts with staff and fellow residents. Today, nursing states that pt was more lethargic and that for the last two days, she has been more confused and has had poor appetite. Her v.s were stable at the [facility], however, she was noted to have black stool with streaks of blood in it. Off note, she was admitted on for Pneumonia and received treatment with Levaquin and Cefepime. During evaluation at the ED, the CXR obtained showed Pneumonia. Even though there was no Leukocytosis on CBC, she had elevated neutrophils. Her Lactic Acid was elevated at 4.0. She will need to be admitted inpatient for a minimum of 2 midnights due to Pneumonia seventy index of 3 on CURB -65, which carries a 14% mortality risk and calls for hospital admission/ICU setting. - Patient's Past Medical History Patient History - Medical: Anemia, Anxiety, Arthritis, Dementia, Osteoarthritis , Osteoporosis, Other Patient History - Cardiac/Respiratory: Hypertension, Hyperlipidemia, Other Patient History - Cancer: No Hx of Cancer Patient History - Surgical Procedures: Appendectomy, Colonoscopy, Other Patient History - Other: None LMP (females 10-50): Menopausal - Family History Father Family History - Medical: Mother Family History - Medical: , Dementia, Osteoporosis Family History - Cardiac/Respiratory: Hypertension - Social History Living Situations: snf Abuse History: No History of abuse Psych History: Hx of Anxiety Smoking Status: Never smoker Have you smoked in the past 12 months: No Alcohol Use: none Drug Use: benzodiazepine - Immunizations Immunizations Up to Date: Yes Hx Pneumococcal Vaccination: Yes History of Influenza Vaccine: Yes Review Of Systems (GEN) - Review of Systems Generalized/Overall Review: Present: Weakness Additional Comments: ROS unobtainable from pt due to history of Dementia. Immunizations: IMMUNIZATION HX Immunizations Up to Date Yes History of Influenza Vaccine Yes Hx Pneumococcal Vaccination Yes Allergies/Adverse Reactions: Allergies Allergy/AdvReac Type Severity Reaction Status Date / Time aspirin Allergy ulcers Verified 10/10/16 17:35 dextran 70 *RETIRED-02/23/13 Allergy Verified 10/10/16 17:35 [From Visine] glycerin [From Visine] Allergy Verified 10/10/16 17:35 hypromellose Allergy Verified 10/10/16 17:35 *RETIRED-02/23/13 [From Visine] ibuprofen Allergy ulcers Verified 10/10/16 17:35 Penicillins Allergy Verified 10/10/16 17:35 polyethylene glycol 400 Allergy Verified 10/10/16 17:35 [From Visine] povidone [From Visine] Allergy Verified 10/10/16 17:35 tetrahydrozoline HCl Allergy Verified 10/10/16 17:35 [From Visine] Home Medications: HOME MEDICATIONS Alendronate Sodium [Fosamax] 70 mg PO MO 11/29/12 [Last Taken 07/30/16 07:00] Simvastatin [Zocor] 40 mg PO HS 11/29/12 [Last Taken 08/04/16 19:00] ALPRAZolam [Xanax] 0.25 mg PO TID PRN 08/05/16 [Last Taken Unknown] Acetaminophen [Tylenol] 650 mg PO HS 08/05/16 [Last Taken 08/04/16 19:00] Acetaminophen [Tylenol] 650 mg PO QID PRN 08/05/16 [Last Taken 07/30/16 04:05] Calcium Carbonate [Qxek-Fin-951] 1,250 mg PO 0700,1500,1900 08/05/16 [Last Taken 08/04/16 19:00] Cholecalciferol (Vitamin D3) [Vitamin D3] 2,000 unit PO DAILY 08/05/16 [Last Taken 08/04/16 07:00] Docusate Sodium [Doc-Q-Lace] 100 mg PO 0700,1500,1900 08/05/16 [Last Taken 08/04 19:00] Ferrous Sulfate [Iron] 325 mg PO BID 08/05/16 [Last Taken 08/04/16 19:00] Folic Acid 1 mg PO DAILY 08/05/16 [Last Taken 08/04/16 07:00] Magnesium 250 mg PO 0700,1500,1900 08/05/16 [Last Taken 08/04/16 19:00] azaTHIOprine [Imuran] 50 mg PO DAILY 08/05/16 [Last Taken 08/04/16 07:00] predniSONE [Prednisone] 10 mg PO DAILY 08/05/16 [Last Taken 08/04/16 07:00] traMADol HCL [Ultram] 50 mg PO 0700,1500,1900 08/05/16 [Last Taken 08/04/16 19: 00] Mupirocin 1 appl TP DAILY PRN 10/10/16 [Last Taken Unknown] Exam - Exam Vital Signs: Vital Signs - Last Taken Temp 37.5 C 10/10/16 20:04 Pulse 88 10/10/16 20:04 Resp 24 H 10/10/16 20:04 BP 89/45 10/10/16 20:04 Pulse Ox 97 10/10/16 20:04 Constitutional: Present: No distress, Lethargic, Other - Respond to her name only, does not follow commands., Elderly ENT Exam: Present: hard of hearing, dry mucous membranes. Absent: nasal congestion, nasal drainage Eye Exam: bilateral eye: normal inspection, PERRL Neck: Present: full range of motion, supple, normal inspection Back Exam: Present: normal inspection, no CVA tenderness Respiratory: Present: no accessory muscle use, decreased breath sounds Cardiovascular/Chest: Present: normal peripheral pulses, regular rate, rhythm, no chest tenderness, no edema, no murmur Abdomen: Present: Normal bowel sounds, soft, nontender /Rectal: Present: Exam deferred Extremity: Present: non-tender, normal inspection, no pedal edema Skin Exam: Present: warm/dry, no cyanosis Lymphatic: Present: no adenopathy Neurologic: Present: other - Oriented to self only. Appearance: Present: impaired insight, impaired recent memory, impaired remote memory Eye contact: Present: other - Moans when touched. Thoughts: Present: no apparent hallucination Diagnostic Studies: Laboratory Results WBC 9.6 K/mm3 (4.0-10.5) 10/10/16 17:45 RBC 4.03 M/mm3 (4.2-5.4) L 10/10/16 17:45 Hgb 11.0 gm/dL (12.5-16.0) L 10/10/16 17:45 Hct 34.8 % (37.0-47.0) L 10/10/16 17:45 MCV 86.4 fl (78-100) 10/10/16 17:45 MCH 27.3 pg (27-31) 10/10/16 17:45 MCHC 31.6 g/dl (32-36) L 10/10/16 17:45 RDW 15.3 % (11.5-14.0) H 10/10/16 17:45 Plt Count 247 K/mm3 (150-450) 10/10/16 17:45 MPV 9.1 fl (6.0-9.5) 10/10/16 17:45 Immature Gran % (Auto) 1.60 % (0.001-0.429) H 10/10/16 17:45 Immature Gran # (Auto) 0.15 K/mm3 (0.000-0.0310) H 10/10/16 17:45 Neutrophils % 85.2 % (42-75.0) H 10/10/16 17:45 Lymphocytes % 6.9 % (20-51) L 10/10/16 17:45 Monocytes % 6.0 % (0.0-9) 10/10/16 17:45 Eosinophils % 0.0 % (0.0-3.0) 10/10/16 17:45 Basophils % 0.3 % (0.0-1.0) 10/10/16 17:45 Nucleated RBC % 0.0 k/mm3 (0-1) 10/10/16 17:45 Neutrophils # 8.2 K/mm3 (1.3-6.0) H 10/10/16 17:45 Lymphocytes # 0.7 k/mm3 (1.5-3.5) L 10/10/16 17:45 Monocytes # 0.6 k/mm3 (0.0-1.0) 10/10/16 17:45 Eosinophils # 0.0 k/mm3 (0.0-0.7) 10/10/16 17:45 Absolute Basophils 0.0 k/mm3 (0.0-0.1) 10/10/16 17:45 Sodium 140 mmol/L (132-142) 10/10/16 17:45 Plasma Sodium 141 mmol/L (130-142) 10/10/16 17:45 Potassium 3.8 mmol/L (3.4-4.6) 10/10/16 17:45 Chloride 103 mmol/L (97-106) 10/10/16 17:45 Carbon Dioxide 26.8 mmol/L (24-32.6) 10/10/16 17:45 Anion Gap 14.0 mmol/L (6.8-13.8) H 10/10/16 17:45 BUN 43 mg/dL (3-23) H 10/10/16 17:45 Creatinine 1.41 mg/dL (0.4-1.4) H D 10/10/16 17:45 Est GFR (Non-Af Amer) 38 mL/min (60-130) L D 10/10/16 17:45 BUN/Creatinine Ratio 30.5 (9.0-21.6) H 10/10/16 17:45 Random Glucose 166 mg/dL (70-110) H 10/10/16 17:45 Lactic Acid, Venous 4.0 mmol/L (0.4-2.0) H* 10/10/16 17:45 Calcium 8.9 mg/dL (7.9-10.9) 10/10/16 17:45 Calcium Adj for Albumin 10.3 mg/dL (8.4-10.2) H 10/10/16 17:45 Total Bilirubin 0.3 mg/dL (0.0-1.1) 10/10/16 17:45 AST 21 U/L (0-48) 10/10/16 17:45 ALT 19 U/L (19-67) 10/10/16 17:45 Alkaline Phosphatase 150 U/L (50-170) 10/10/16 17:45 Total Protein 5.3 gm/dL (6.2-8.2) L 10/10/16 17:45 Albumin 1.9 gm/dl (3.4-5.0) L 10/10/16 17:45 Amylase 59 U/L (25-115) 10/10/16 17:45 Lipase 295 U/L (73-393) 10/10/16 17:45 Urine Color Dark yellow 10/10/16 17:45 Urine Appearance Clear 10/10/16 17:45 Urine pH 7.0 pH (5.0-7.0) 10/10/16 17:45 Ur Specific [place] 1.025 SP.GR. (1.005-1.010) 10/10/16 17:45 Urine Protein 100 mg/dL (NEGATIVE) H 10/10/16 17:45 Urine Glucose (UA) Negative mg/dL (NEGATIVE) 10/10/16 17:45 Urine Ketones 5 mg/dL (NEGATIVE) 10/10/16 17:45 Urine Blood Negative /ul (NEGATIVE) 10/10/16 17:45 Urine Nitrate Negative (NEGATIVE) 10/10/16 17:45 Urine Bilirubin 1 mg/dl (NEGATIVE) H 10/10/16 17:45 Urine Ictotest Negative (NEGATIVE) 10/10/16 17:45 Prot Sulfosalicylic Acd 1+ mg/dL (0) 10/10/16 17:45 Urine Urobilinogen Normal EU/dl (NORMAL) 10/10/16 17:45 Ur Leukocyte Esterase Negative /ul (NEGATIVE) 10/10/16 17:45 Urine RBC None seen /hpf (0-5) 10/10/16 17:45 Urine WBC 0-5 /hpf (0-5) 10/10/16 17:45 Ur Epithelial Cells None seen /hpf (0-5) 10/10/16 17:45 Urine Bacteria 4+ (NONE) H 10/10/16 17:45 Fine Granular Casts 10-25 /LPF (NONE) H 10/10/16 17:45 Urine Mucus Few - 1+ (NONE) H 10/10/16 17:45 Urine Culture Comments No culture indicated 10/10/16 17:45 Assessment/Plan - Assessment/Plan (1) Sepsis Assessment: Evidenced by mental status changes, Lactic acid, High HR & Respirations. Will be admitted receive treatment according to Sepsis Protocol- Aggressive IVF hydration, IV antibiotics. Check CBC in am. Anticipate the LOS to be 3-5 days due to advanced age & cormobidities which can complicate recovery. Problem: Acute (2) Pneumonia Assessment: Pt is a [facility] at [facility] and therefore will treat as health care associated Pneumonia. Will cover with Cefepime and Levaquin and switch to appropriate antibiotics when blood & Sputum culture results. Problem: Acute (3) Altered mental status Assessment: AMS is likely due to infection from PNA. UA showed possible UTI, will check culture urine. Problem: Acute (4) UTI (urinary tract infection) Assessment: UA showed 4 plus bacteria. Will check culture urine. Well covered with IV Ax for now. Problem: Acute (5) Dehydration Assessment: B/P slightly low, dry mucous membrane, and slightly elevated CR. Provide hydration with IVF. Monitor BMP. Problem: Acute (6) HTN (hypertension) Problem: Chronic QualifierTitle: Hypertension type: essential hypertension Qualified Code( s): I10 - Essential (primary) hypertension (7) HLD (hyperlipidemia) Problem: Chronic <Mag Mack - Last Filed: 10/11/16 08:34> Immunizations: IMMUNIZATION HX Immunizations Up to Date Yes History of Influenza Vaccine Yes Hx Pneumococcal Vaccination Yes Exam - Exam Vital Signs: Vital Signs - Last Taken Temp 36.5 C 10/11/16 06:51 Pulse 84 10/11/16 06:51 Resp 20 10/11/16 06:51 BP 98/84 10/11/16 06:51 Pulse Ox 95 10/11/16 06:51 Diagnostic Studies: Abnormal Lab Results 10/10/16 10/11/16 10/11/16 Range/Units 21:45 04:50 05:42 RBC 2.62 L (4.2-5.4) M/mm3 Hgb 9.2 L (12.5-16.0) gm/dL Hct 28.2 L (37.0-47.0) % MCV 107.6 H (78-100) fl MCH 35.1 H (27-31) pg RDW 20.7 H (11.5-14.0) % Plt Count 77 L (150-450) K/mm3 Band Neuts % (Manual) 15 H (0-2.0) % Lymphocytes % (Manual) 14 L (20-51) % Neutrophils # (Manual) 6.8 H (1.3-6.0) K/mm3 Lymphocytes # (Manual) 1.4 L (1.5-3.5) k/mm3 Platelet Estimate Decreased L (NORMAL) Chloride (97-106) mmol/L BUN (3-23) mg/dL BUN/Creatinine Ratio (9.0-21.6) Random Glucose (70-110) mg/dL Lactic Acid, Venous 2.3 H* (0.4-2.0) mmol/L Stool Occult Blood Positive H 10/11/16 Range/Units 05:42 RBC (4.2-5.4) M/mm3 Hgb (12.5-16.0) gm/dL Hct (37.0-47.0) % MCV (78-100) fl MCH (27-31) pg RDW (11.5-14.0) % Plt Count (150-450) K/mm3 Band Neuts % (Manual) (0-2.0) % Lymphocytes % (Manual) (20-51) % Neutrophils # (Manual) (1.3-6.0) K/mm3 Lymphocytes # (Manual) (1.5-3.5) k/mm3 Platelet Estimate (NORMAL) Chloride 109 H (97-106) mmol/L BUN 36 H (3-23) mg/dL BUN/Creatinine Ratio 41.4 H (9.0-21.6) Random Glucose 112 H D (70-110) mg/dL Lactic Acid, Venous (0.4-2.0) mmol/L Stool Occult Blood Laboratory Results WBC 10.3 K/mm3 (4.0-10.5) 10/11/16 05:42 RBC 2.62 M/mm3 (4.2-5.4) L 10/11/16 05:42 Hgb 9.2 gm/dL (12.5-16.0) L 10/11/16 05:42 Hct 28.2 % (37.0-47.0) L 10/11/16 05:42 MCV 107.6 fl (78-100) H 10/11/16 05:42 MCH 35.1 pg (27-31) H 10/11/16 05:42 MCHC 32.6 g/dl (32-36) 10/11/16 05:42 RDW 20.7 % (11.5-14.0) H 10/11/16 05:42 Plt Count 77 K/mm3 (150-450) L 10/11/16 05:42 MPV 9.3 fl (6.0-9.5) 10/11/16 05:42 Immature Gran % (Auto) 1.60 % (0.001-0.429) H 10/10/16 17:45 Immature Gran # (Auto) 0.15 K/mm3 (0.000-0.0310) H 10/10/16 17:45 Neutrophils % 85.2 % (42-75.0) H 10/10/16 17:45 Neutrophils % (Manual) 66 % (42-75) 10/11/16 05:42 Band Neuts % (Manual) 15 % (0-2.0) H 10/11/16 05:42 Lymphocytes % 6.9 % (20-51) L 10/10/16 17:45 Lymphocytes % (Manual) 14 % (20-51) L 10/11/16 05:42 Monocytes % 6.0 % (0.0-9) 10/10/16 17:45 Monocytes % (Manual) 5 % (0-9) 10/11/16 05:42 Eosinophils % 0.0 % (0.0-3.0) 10/10/16 17:45 Basophils % 0.3 % (0.0-1.0) 10/10/16 17:45 Nucleated RBC % 0.0 k/mm3 (0-1) 10/10/16 17:45 Neutrophils # 8.2 K/mm3 (1.3-6.0) H 10/10/16 17:45 Neutrophils # (Manual) 6.8 K/mm3 (1.3-6.0) H 10/11/16 05:42 Lymphocytes # 0.7 k/mm3 (1.5-3.5) L 10/10/16 17:45 Lymphocytes # (Manual) 1.4 k/mm3 (1.5-3.5) L 10/11/16 05:42 Monocytes # 0.6 k/mm3 (0.0-1.0) 10/10/16 17:45 Monocytes # (Manual) 0.5 k/mm3 (0.0-1.0) 10/11/16 05:42 Eosinophils # 0.0 k/mm3 (0.0-0.7) 10/10/16 17:45 Absolute Basophils 0.0 k/mm3 (0.0-0.1) 10/10/16 17:45 Platelet Estimate Decreased (NORMAL) L 10/11/16 05:42 Hypochromasia Trace 10/11/16 05:42 Macrocytosis 2+ 10/11/16 05:42 Sodium 142 mmol/L (132-142) 10/11/16 05:42 Plasma Sodium 142 mmol/L (130-142) 10/11/16 05:42 Potassium 3.8 mmol/L (3.4-4.6) 10/11/16 05:42 Chloride 109 mmol/L (97-106) H 10/11/16 05:42 Carbon Dioxide 24.7 mmol/L (24-32.6) 10/11/16 05:42 Anion Gap 12.1 mmol/L (6.8-13.8) 10/11/16 05:42 BUN 36 mg/dL (3-23) H 10/11/16 05:42 Creatinine 0.87 mg/dL (0.4-1.4) 10/11/16 05:42 Est GFR (Non-Af Amer) 66 mL/min (60-130) D 10/11/16 05:42 BUN/Creatinine Ratio 41.4 (9.0-21.6) H 10/11/16 05:42 Random Glucose 112 mg/dL (70-110) H D 10/11/16 05:42 Lactic Acid, Venous 2.3 mmol/L (0.4-2.0) H* 10/10/16 21:45 Calcium mg/dL (7.9-10.9) 10/11/16 05:42 Calcium Adj for Albumin 10.3 mg/dL (8.4-10.2) H 10/10/16 17:45 Total Bilirubin 0.3 mg/dL (0.0-1.1) 10/10/16 17:45 AST 21 U/L (0-48) 10/10/16 17:45 ALT 19 U/L (19-67) 10/10/16 17:45 Alkaline Phosphatase 150 U/L (50-170) 10/10/16 17:45 Total Protein 5.3 gm/dL (6.2-8.2) L 10/10/16 17:45 Albumin 1.9 gm/dl (3.4-5.0) L 10/10/16 17:45 Amylase 59 U/L (25-115) 10/10/16 17:45 Lipase 295 U/L (73-393) 10/10/16 17:45 Urine Color Dark yellow 10/10/16 17:45 Urine Appearance Clear 10/10/16 17:45 Urine pH 7.0 pH (5.0-7.0) 10/10/16 17:45 Ur Specific [place] 1.025 SP.GR. (1.005-1.010) 10/10/16 17:45 Urine Protein 100 mg/dL (NEGATIVE) H 10/10/16 17:45 Urine Glucose (UA) Negative mg/dL (NEGATIVE) 10/10/16 17:45 Urine Ketones 5 mg/dL (NEGATIVE) 10/10/16 17:45 Urine Blood Negative /ul (NEGATIVE) 10/10/16 17:45 Urine Nitrate Negative (NEGATIVE) 10/10/16 17:45 Urine Bilirubin 1 mg/dl (NEGATIVE) H 10/10/16 17:45 Urine Ictotest Negative (NEGATIVE) 10/10/16 17:45 Prot Sulfosalicylic Acd 1+ mg/dL (0) 10/10/16 17:45 Urine Urobilinogen Normal EU/dl (NORMAL) 10/10/16 17:45 Ur Leukocyte Esterase Negative /ul (NEGATIVE) 10/10/16 17:45 Urine RBC None seen /hpf (0-5) 10/10/16 17:45 Urine WBC 0-5 /hpf (0-5) 10/10/16 17:45 Ur Epithelial Cells None seen /hpf (0-5) 10/10/16 17:45 Urine Bacteria 4+ (NONE) H 10/10/16 17:45 Fine Granular Casts 10-25 /LPF (NONE) H 10/10/16 17:45 Urine Mucus Few - 1+ (NONE) H 10/10/16 17:45 Urine Culture Comments No culture indicated 10/10/16 17:45 Stool Occult Blood Positive H 10/11/16 04:50
[2016-10-10] MEDS: FERROUS SULFATE 325 MG TABLET PO SCH (21:47)
[2016-10-10] MEDS: SIMVASTATIN 20 MG TABLET PO SCH (21:47)
[2016-10-10] MEDS: ACETAMINOPHEN 325 MG TABLET PO SCH (21:47)
[2016-10-10] MEDS: HEPARIN SODIUM,PORCINE 5,000 UNITS/ML VIAL SC SCH (21:48)
[2016-10-11] MEDS: NORMAL SALINE 1,000 ML IV PRN (05:14)
[2016-10-11] MEDS ORDERED: CEFEPIME HCL 1 GM in DEXTROSE 5 % IN WATER 100 ML IV SCH ×2 (06:00)
[2016-10-11 06:30] LABS: Hematocrit 28.2 % (37.0-47.0); Hemoglobin 9.2 gm/dL (12.5-16.0); Mean Cell Volume 107.6 fl (78-100); Mean Corpuscular Hemoglobin 35.1 pg (27-31); Mean Corpuscular Hgb Conc 32.6 g/dl (32-36); Mean Platelet Volume 9.3 fl (6.0-9.5); Platelet Count 77 K/mm3 (150-450); Red Blood Count 2.62 M/mm3 (4.2-5.4); Red Cell Distribution Width 20.7 % (11.5-14.0); White Blood Count 10.3 K/mm3 (4.0-10.5)
[2016-10-11 06:34] LABS: Total Cells Counted 100
[2016-10-11 06:47] LABS: Anion Gap 12.1 mmol/L (6.8-13.8); BUN/Creatinine Ratio 41.4 (9.0-21.6); Carbon Dioxide 24.7 mmol/L (24-32.6); Estimated Creat Clear 43.8; Potassium 3.8 mmol/L (3.4-4.6)
[2016-10-11 07:13] LABS: Band 15 % (0-2.0); Hypochromia Trace; Lymphocyte 14 % (20-51); Macrocytosis 2+; Monocyte 5 % (0-9); Neutrophil 66 % (42-75); Neutrophil # 6.8 K/mm3 (1.3-6.0); Platelet Estimate Decreased (NORMAL)
[2016-10-11] MEDS: traMADol HCL 50 MG TABLET PO SCH ×2 (07:16→16:06)
[2016-10-11] MEDS: DOCUSATE SODIUM 100 MG CAPSULE PO SCH ×3 (07:17→18:59)
[2016-10-11] MEDS: CALCIUM CARBONATE/VITAMIN D3 1 TAB TABLET PO SCH ×3 (07:17→18:58)
[2016-10-11] MEDS: MAGNESIUM OXIDE 400 MG TABLET PO SCH ×3 (07:18→19:00)
[2016-10-11] MEDS: HEPARIN SODIUM,PORCINE 5,000 UNITS/ML VIAL SC SCH ×2 (07:19→21:06)
--- NOTE | 2016-10-11 08:44 | PN ---
Subjective - Date and Time Seen Date: 10/11/16 Time: 08:37 Subjective Narrative: Patient is confused and cannot remember her name as well. she is also immunocompromised with her immuran. Objective - Review of Systems Generalized/Overall Review: Reports: No Symptoms Reported EENTM: Reports: No Symptoms Reported Respiratory: Reports: No Symptoms Reported Cardiac: Reports: No Symptoms Reported Abdominal: Reports: No Symptoms Reported Genitourinary Symptoms: Reports: No Symptoms Reported Musculoskeletal Complaints: Reports: No Symptoms Reported Neurological: Reports: No Symptoms Reported Skin: Reports: No Symptoms Reported Endocrine: Reports: No Symptoms Reported Misc: All systems neg except as marked - ROS was unobtainable due to mental status change - Vitals Vitals: Last Vital Signs Temp 36.5 C 10/11/16 06:51 Pulse 84 10/11/16 06:51 Resp 20 10/11/16 06:51 BP 98/84 10/11/16 06:51 Pulse Ox 95 10/11/16 06:51 - Abnormal Lab Findings Abnormal Lab Findings: Abnormal Lab Results 10/10/16 10/11/16 10/11/16 Range/Units 21:45 04:50 05:42 RBC 2.62 L (4.2-5.4) M/mm3 Hgb 9.2 L (12.5-16.0) gm/dL Hct 28.2 L (37.0-47.0) % MCV 107.6 H (78-100) fl MCH 35.1 H (27-31) pg RDW 20.7 H (11.5-14.0) % Plt Count 77 L (150-450) K/mm3 Band Neuts % (Manual) 15 H (0-2.0) % Lymphocytes % (Manual) 14 L (20-51) % Neutrophils # (Manual) 6.8 H (1.3-6.0) K/mm3 Lymphocytes # (Manual) 1.4 L (1.5-3.5) k/mm3 Platelet Estimate Decreased L (NORMAL) Chloride (97-106) mmol/L BUN (3-23) mg/dL BUN/Creatinine Ratio (9.0-21.6) Random Glucose (70-110) mg/dL Lactic Acid, Venous 2.3 H* (0.4-2.0) mmol/L Stool Occult Blood Positive H 03/23/17 Range/Units 05:42 RBC (4.2-5.4) M/mm3 Hgb (12.5-16.0) gm/dL Hct (37.0-47.0) % MCV (78-100) fl MCH (27-31) pg RDW (11.5-14.0) % Plt Count (150-450) K/mm3 Band Neuts % (Manual) (0-2.0) % Lymphocytes % (Manual) (20-51) % Neutrophils # (Manual) (1.3-6.0) K/mm3 Lymphocytes # (Manual) (1.5-3.5) k/mm3 Platelet Estimate (NORMAL) Chloride 109 H (97-106) mmol/L BUN 36 H (3-23) mg/dL BUN/Creatinine Ratio 41.4 H (9.0-21.6) Random Glucose 112 H D (70-110) mg/dL Lactic Acid, Venous (0.4-2.0) mmol/L Stool Occult Blood - Exam Constitutional: Present: Other - confused, Elderly ENT Exam: Present: hearing grossly normal Neck: Present: supple Breasts: Present: Exam deferred Respiratory: Present: decreased breath sounds, No rales, No wheezing Cardiovascular/Chest: Present: regular rate, rhythm, no JVD, no murmur Abdomen: Present: Normal bowel sounds, soft, nontender, nondistended Extremity: Present: no pedal edema, no calf tenderness Assessment/Plan - Problems/Diagnosis (1) Sepsis Problem: Acute Qualifiers: Sepsis type: sepsis due to unspecified organism Qualified Code(s): A41.9 - Sepsis, unspecified organism Narrative: RR >20, SBP 89, Lactic acid of 4, altered mental status. she does have bandemia and thrombocytopenia today. will d/c her immuran. (2) Pneumonia Problem: Acute Qualifiers: Pneumonia type: due to unspecified organism Laterality: left Lung location: lower lobe of lung Qualified Code(s): J18.1 - Lobar pneumonia, unspecified organism Narrative: will change cefepime to meropenem and add vanco. (3) Altered mental status Problem: Acute Qualifiers: Altered mental status type: delirium Qualified Code(s): R41.0 - Disorientation, unspecified Narrative: likely due to toxic /metabolic encephalopathy (4) Lactic acidosis Problem: Acute Narrative: likely due to dehydration and hypovolemis and/or sepsis. (5) HTN (hypertension) Problem: Chronic Qualifiers: Hypertension type: essential hypertension Qualified Code(s): I10 - Essential (primary) hypertension (6) Bullous pemphigoid Problem: Chronic Narrative: on prednisone and immuran. will d/c immuran for now.
[2016-10-11] MEDS ORDERED: predniSONE 20 MG TABLET PO SCH (09:00)
[2016-10-11] MEDS ORDERED: azaTHIOprine 50 MG TABLET PO SCH (09:00)
[2016-10-11] MEDS: FOLIC ACID 1 MG TABLET PO SCH (09:59)
[2016-10-11] MEDS: CHOLECALCIFEROL 1,000 UNIT CAPSULE PO SCH (09:59)
[2016-10-11] MEDS: predniSONE 10 MG TABLET PO SCH (09:59)
[2016-10-11] MEDS: FERROUS SULFATE 325 MG TABLET PO SCH ×2 (09:59→21:13)
[2016-10-11 10:27] LABS: Prothrombin Time (Patient) 12.6 Seconds (9.4-11.4)
[2016-10-11 10:45] LABS: INR 1.21 INR (0.90-1.10)
[2016-10-11] MEDS: MEROPENEM 1 GM in NORMAL SALINE 100 ML IV SCH ×2 (11:29→21:20)
[2016-10-11] MEDS: VANCOMYCIN HCL 1.25 GM in DEXTROSE 5 % IN WATER 250 ML IV SCH ×2 (13:13)
[2016-10-11] MEDS: NORMAL SALINE IV PRN (21:04)
[2016-10-11] MEDS: ACETAMINOPHEN 325 MG TABLET PO SCH (21:12)
[2016-10-11] MEDS: SIMVASTATIN 20 MG TABLET PO SCH (21:13)
[2016-10-12] MEDS ORDERED: CEFEPIME HCL 1 GM in DEXTROSE 5 % IN WATER 100 ML IV SCH ×2 (05:00)
[2016-10-12] MEDS: NORMAL SALINE IV PRN ×2 (05:42→18:54)
[2016-10-12 06:03] LABS: Hematocrit 27.9 % (37.0-47.0); Hemoglobin 8.6 gm/dL (12.5-16.0); Mean Cell Volume 88.9 fl (78-100); Mean Corpuscular Hemoglobin 27.4 pg (27-31); Mean Corpuscular Hgb Conc 30.8 g/dl (32-36); Mean Platelet Volume 9.4 fl (6.0-9.5); Platelet Count 205 K/mm3 (150-450); Red Blood Count 3.14 M/mm3 (4.2-5.4); Red Cell Distribution Width 15.4 % (11.5-14.0); White Blood Count 9.1 K/mm3 (4.0-10.5)
[2016-10-12] MEDS: traMADol HCL 50 MG TABLET PO SCH ×4 (06:17→19:03)
[2016-10-12 06:20] LABS: Anion Gap 10.9 mmol/L (6.8-13.8); Calcium * 7.3 mg/dL (7.9-10.9); Carbon Dioxide 23.8 mmol/L (24-32.6); Estimated Creat Clear 63.5; Potassium 3.7 mmol/L (3.4-4.6); Total Cells Counted 100
[2016-10-12 06:22] LABS: Band 17 % (0-2.0); Dohle Bodies 2+; Lymphocyte 8 % (20-51); Monocyte 1 % (0-9); Neutrophil 74 % (42-75); Neutrophil # 6.7 K/mm3 (1.3-6.0); Platelet Estimate Normal (NORMAL); Toxic Granulation 1+
[2016-10-12] MEDS: CALCIUM CARBONATE/VITAMIN D3 1 TAB TABLET PO SCH ×3 (07:06→19:00)
[2016-10-12] MEDS: MAGNESIUM OXIDE 400 MG TABLET PO SCH ×3 (07:07→19:02)
[2016-10-12] MEDS: DOCUSATE SODIUM 100 MG CAPSULE PO SCH ×3 (07:07→19:03)
--- NOTE | 2016-10-12 08:11 | PN ---
Subjective - Date and Time Seen Date: 10/12/16 Time: 08:03 Subjective Narrative: Patient is more alert. remembered the name of her PCP. Objective - Review of Systems Generalized/Overall Review: Reports: No Symptoms Reported EENTM: Reports: No Symptoms Reported Respiratory: Reports: No Symptoms Reported Cardiac: Reports: No Symptoms Reported Abdominal: Reports: No Symptoms Reported Genitourinary Symptoms: Reports: No Symptoms Reported Musculoskeletal Complaints: Reports: No Symptoms Reported Neurological: Reports: No Symptoms Reported Skin: Reports: No Symptoms Reported Endocrine: Reports: No Symptoms Reported Misc: All systems neg except as marked - ROS is unreliable due to her mental status although more alert today. - Vitals Vitals: Last Vital Signs Temp 37.5 C 10/12/16 06:43 Pulse 115 H 10/12/16 06:43 Resp 20 10/12/16 06:43 BP 136/78 10/12/16 06:43 Pulse Ox 95 10/12/16 06:43 - Abnormal Lab Findings Abnormal Lab Findings: Abnormal Lab Results 10/11/16 10/11/16 10/11/16 Range/Units 05:42 05:42 05:42 RBC (4.2-5.4) M/mm3 Hgb (12.5-16.0) gm/dL Hct (37.0-47.0) % MCHC (32-36) g/dl RDW (11.5-14.0) % Band Neuts % (Manual) (0-2.0) % Lymphocytes % (Manual) (20-51) % Neutrophils # (Manual) (1.3-6.0) K/mm3 Lymphocytes # (Manual) (1.5-3.5) k/mm3 ESR 32 H (0-15) mm/hr PT 12.6 H (9.4-11.4) Seconds INR (Anticoag Therapy) 1.21 H (0.90-1.10) INR Chloride (97-106) mmol/L Carbon Dioxide (24-32.6) mmol/L BUN (3-23) mg/dL BUN/Creatinine Ratio (9.0-21.6) Calcium (7.9-10.9) mg/dL C-Reactive Prot, Quant 17.5 H (0.0-0.9) mg/dL 03/24/17 03/24/17 Range/Units 05:59 05:59 RBC 3.14 L (4.2-5.4) M/mm3 Hgb 8.6 L (12.5-16.0) gm/dL Hct 27.9 L (37.0-47.0) % MCHC 30.8 L (32-36) g/dl RDW 15.4 H (11.5-14.0) % Band Neuts % (Manual) 17 H (0-2.0) % Lymphocytes % (Manual) 8 L (20-51) % Neutrophils # (Manual) 6.7 H (1.3-6.0) K/mm3 Lymphocytes # (Manual) 0.7 L (1.5-3.5) k/mm3 ESR (0-15) mm/hr PT (9.4-11.4) Seconds INR (Anticoag Therapy) (0.90-1.10) INR Chloride 111 H (97-106) mmol/L Carbon Dioxide 23.8 L (24-32.6) mmol/L BUN 27 H (3-23) mg/dL BUN/Creatinine Ratio 45.0 H (9.0-21.6) Calcium 7.3 L (7.9-10.9) mg/dL C-Reactive Prot, Quant (0.0-0.9) mg/dL - Exam Constitutional: Present: Alert - AAO x 1, Elderly ENT Exam: Present: hearing grossly normal Neck: Present: supple Breasts: Present: Exam deferred Respiratory: Present: decreased breath sounds, No rales, No wheezing Cardiovascular/Chest: Present: regular rate, rhythm, no JVD, no murmur Abdomen: Present: Normal bowel sounds, soft, nontender, nondistended Extremity: Present: no pedal edema, no calf tenderness Assessment/Plan - Problems/Diagnosis (1) Sepsis Problem: Acute Qualifiers: Sepsis type: sepsis due to unspecified organism Qualified Code(s): A41.9 - Sepsis, unspecified organism Narrative: continue with IV antibiotics. bands of 17 %. not carrying a WBC likely due to immunosupression. (2) Pneumonia Problem: Acute Qualifiers: Pneumonia type: due to unspecified organism Laterality: left Lung location: lower lobe of lung Qualified Code(s): J18.1 - Lobar pneumonia, unspecified organism Narrative: continue with IV antibiotics (3) Altered mental status Problem: Acute Qualifiers: Altered mental status type: delirium Qualified Code(s): R41.0 - Disorientation, unspecified Narrative: improving. (4) Lactic acidosis Problem: Acute Narrative: will repeat (5) HTN (hypertension) Problem: Chronic Qualifiers: Hypertension type: essential hypertension Qualified Code(s): I10 - Essential (primary) hypertension Narrative: BP improved (6) Bullous pemphigoid Problem: Chronic Narrative: starting to have murphy fascies from prednisone (7) Anemia Problem: Acute Qualifiers: Anemia type: unspecified type Qualified Code(s): D64.9 - Anemia, unspecified Narrative: positive occult blood. H/H continues to go down. could also be dilutional . will do anemia work up. will refer to surgery. (8) Asymptomatic bacteriuria Problem: Acute Narrative: growing alpha hemolytic strep. continue with IV antibiotics pending final sensitivity.
[2016-10-12] MEDS: MEROPENEM 1 GM in NORMAL SALINE 100 ML IV SCH ×2 (09:31→21:10)
[2016-10-12] MEDS: FOLIC ACID 1 MG TABLET PO SCH (09:31)
[2016-10-12] MEDS: predniSONE 10 MG TABLET PO SCH (09:31)
[2016-10-12] MEDS: HEPARIN SODIUM,PORCINE 5,000 UNITS/ML VIAL SC SCH ×2 (09:31→20:43)
[2016-10-12] MEDS: FERROUS SULFATE 325 MG TABLET PO SCH ×2 (09:31→20:44)
[2016-10-12] MEDS: CHOLECALCIFEROL 1,000 UNIT CAPSULE PO SCH (09:31)
[2016-10-12] MEDS: PANTOPRAZOLE SODIUM 40 MG in NORMAL SALINE 100 ML IV SCH (10:57)
[2016-10-12] MEDS: VANCOMYCIN HCL 1.25 GM in DEXTROSE 5 % IN WATER 250 ML IV SCH ×2 (11:40)
[2016-10-12] MEDS ORDERED: MUPIROCIN 22 APPL TUBE TP PRN (11:46)
[2016-10-12 15:24] LABS: Folate 16.2 ng/mL (8.6-58.9)
--- NOTE | 2016-10-12 15:59 | CONS ---
[facility] - General Date of Service: 10/12/16 Narrative: Asked to see re: Heme positive stools. Admitted for sepsis and lobar pneumonia and was found to have heme pos. stools and a decreasing hemoglobin with hydration. AXR shows significant stool retention. She has a history of anemia. She has a history of gastric ulcer in the . Previous colonoscopy was 1999. Source: RN/, old records Exam Limitations: other - delirium - History of Present Illness Allergies/Adverse Reactions: Allergies aspirin Allergy (Verified 10/10/16 17:35) ulcers dextran 70 [From Visine] Allergy (Verified 10/10/16 17:35) glycerin [From Visine] Allergy (Verified 10/10/16 17:35) hypromellose [From Visine] Allergy (Verified 10/10/16 17:35) ibuprofen Allergy (Verified 10/10/16 17:35) ulcers Penicillins Allergy (Verified 10/10/16 17:35) polyethylene glycol 400 [From Visine] Allergy (Verified 10/10/16 17:35) povidone [From Visine] Allergy (Verified 10/10/16 17:35) tetrahydrozoline HCl [From Visine] Allergy (Verified 10/10/16 17:35) Home Medications: Home Medications Medication Instructions Recorded Last Taken Alendronate Sodium [Fosamax] 70 mg PO MO 11/29/12 07/30/16 07:00 Simvastatin [Zocor] 40 mg PO HS 11/29/12 08/04/16 19:00 ALPRAZolam [Xanax] 0.25 mg PO TID PRN 08/05/16 Unknown Acetaminophen [Tylenol] 650 mg PO 08/05/16 08/04/16 19:00 Acetaminophen [Tylenol] 650 mg PO QID PRN 08/05/16 07/30/16 04:05 Calcium Carbonate [[id number]-765] 1,250 mg PO 0700,1500,1900 08/05/16 08/04/16 19 :00 Cholecalciferol (Vitamin D3) 2,000 unit PO DAILY 08/05/16 08/04/16 07:00 [Vitamin D3] Docusate Sodium [Doc-Q-Lace] 100 mg PO 0700,1500,1900 08/05/16 08/04/16 19:00 Ferrous Sulfate [Iron] 325 mg PO BID 08/05/16 08/04/16 19:00 Folic Acid 1 mg PO DAILY 08/05/16 08/04/16 07:00 Magnesium 250 mg PO 0700,1500,1900 08/05/16 08/04/16 19:00 azaTHIOprine [Imuran] 50 mg PO DAILY 08/05/16 08/04/16 07:00 predniSONE [Prednisone] 10 mg PO DAILY 08/05/16 08/04/16 07:00 traMADol HCL [Ultram] 50 mg PO 0700,1500,1900 08/05/16 08/04/16 19:00 Mupirocin 1 appl TP DAILY PRN 10/10/16 Unknown - Patient's Past Medical History Patient History - Medical: Anemia, Anxiety, Arthritis, Dementia, Osteoarthritis , Osteoporosis, Other Patient History - Cardiac/Respiratory: Hypertension, Hyperlipidemia, Other Patient History - Cancer: No Hx of Cancer Patient History - Surgical Procedures: Appendectomy, Colonoscopy, Other Patient History - Other: None LMP (females 10-50): Menopausal - Family History Father Family History - Medical: Mother Family History - Medical: , Dementia, Osteoporosis Family History - Cardiac/Respiratory: Hypertension - Social History Living Situations: detention Abuse History: No History of abuse Psych History: Hx of Anxiety Smoking Status: Never smoker Have you smoked in the past 12 months: No Alcohol Use: none Drug Use: benzodiazepine - Immunizations Immunizations Up to Date: Yes Hx Pneumococcal Vaccination: Yes History of Influenza Vaccine: Yes Medications - Medications Current Medications: Current Medications Acetaminophen (Tylenol) 650 mg PO HS GENARO Stop: 11/09/16 21:01 Last Admin: 10/11/16 21:12 Dose: 650 mg Calcium/Vitamin D (Calcarb 600 With Vitamin D) 2 tab PO 0700,1500,1900 GENARO Stop: 11/10/16 07:01 Last Admin: 10/12/16 07:06 Dose: 2 tab Cholecalciferol (Vitamin D) 2,000 unit PO DAILY GENARO Stop: 11/10/16 09:01 Last Admin: 10/12/16 09:31 Dose: 2,000 unit Docusate Sodium (Colace) 100 mg PO 0700,1500,1900 GENARO Stop: 11/10/16 07:01 Last Admin: 10/12/16 07:07 Dose: Not Given Ferrous Sulfate (Ferrous Sulfate) 325 mg PO BID GENARO Stop: 11/09/16 21:01 Last Admin: 10/12/16 09:31 Dose: 325 mg Folic Acid (Folic Acid) 1 mg PO DAILY GENARO Stop: 11/10/16 09:01 Last Admin: 10/12/16 09:31 Dose: 1 mg Heparin Sodium (Porcine) (Heparin Sodium) 5,000 units SC Q12H GENARO Stop: 11/09/16 20:16 Last Admin: 10/12/16 09:31 Dose: 5,000 units Sodium Chloride (Sodium Chloride 0.9%) 1,830.24 mls @ 999 mls/hr IV .Q1H50M PRN PRN Reason: HYDRATION Last Admin: 10/12/16 05:42 Dose: 150 mls/hr Sodium Chloride (Sodium Chloride 0.9%) 1,000 mls @ 100 mls/hr IV .Q10H PRN PRN Reason: HYDRATION Stop: 11/10/16 00:09 Last Admin: 10/11/16 05:14 Dose: 125 mls/hr Meropenem 1 gm/ Sodium (Chloride) 100 mls @ 200 mls/hr IV Q12H [facility] PRN Reason: Protocol Stop: 11/10/16 10:01 Last Admin: 10/12/16 09:31 Dose: 200 mls/hr Vancomycin HCl 1.25 gm/ (Dextrose/Water) 250 mls @ 140 mls/hr IV Q24H [facility] PRN Reason: Protocol Stop: 11/10/16 11:01 Last Admin: 10/12/16 11:40 Dose: 140 mls/hr Pantoprazole Sodium 40 mg/ (Sodium Chloride) 100 mls @ 400 mls/hr IV Q24H [facility] Stop: 11/11/16 10:01 Last Admin: 10/12/16 10:57 Dose: 400 mls/hr Magnesium Oxide (Mag-Ox 400) 200 mg PO 0700,1500,1900 GENARO Stop: 11/10/16 07:01 Last Admin: 10/12/16 07:07 Dose: 200 mg Prednisone (Prednisone) 10 mg PO DAILY GENARO Stop: 11/10/16 09:01 Last Admin: 10/12/16 09:31 Dose: 10 mg Simvastatin (Zocor) 40 mg PO HS GENARO Stop: 11/09/16 21:01 Last Admin: 10/11/16 21:13 Dose: 40 mg Tramadol HCl (Ultram) 50 mg PO 0700,1500,1900 GENARO Stop: 11/10/16 07:01 Last Admin: 10/12/16 07:07 Dose: 50 mg Review of Systems - Review of Systems Narrative: Unable to obtain Physical Examination - Exam Vital Signs: Vital Signs - Last Taken Temp 36.6 C 10/12/16 14:26 Pulse 91 10/12/16 14:26 Resp 18 10/12/16 14:26 BP 120/78 10/12/16 14:26 Pulse Ox 95 10/12/16 14:26 O2 Oxygen Delivery Method Room Air Constitutional: Present: Somnolent, Other - Barely arousable. Once aroused, she is incomprehensible., Elderly Abdomen: Present: nontender, no hepatospenomegaly, no masses Skin Exam: Present: pallor - Results and Findings: Lab/Microbiology results last 24 hrs: Abnormal/Pending Laboratory Last 24 HRS 10/12/16 10/12/16 05:59 05:59 RBC 3.14 L Hgb 8.6 L Hct 27.9 L MCHC 30.8 L RDW 15.4 H Band Neuts % (Manual) 17 H Lymphocytes % (Manual) 8 L Neutrophils # (Manual) 6.7 H Lymphocytes # (Manual) 0.7 L Chloride 111 H Carbon Dioxide 23.8 L BUN 27 H BUN/Creatinine Ratio 45.0 H Calcium 7.3 L Culture 10/10/16 21:45 - Final Nares MRSA Negative - Assessments/Findings (1) Anemia Diagnosis(s): Given her reasonably stable vitals and concurrent co-morbidities it would be prudent to work this up on an elective basis, unless emergently indicated, with both an upper and lower endoscopy. Will follow along with you and appreciate the kind consult. Problem: Acute Qualifiers: Anemia type: unspecified type Qualified Code(s): D64.9 - Anemia, unspecified
[2016-10-12 16:05] LABS: Iron 34 mcg/dL (35-120); Transferrin Sat. (% Sat.) 23 % (15-55)
[2016-10-12] MEDS: ACETAMINOPHEN 325 MG TABLET PO SCH (20:43)
[2016-10-12] MEDS: SIMVASTATIN 20 MG TABLET PO SCH (20:44)
[2016-10-12] MEDS: LEVOFLOXACIN/D5W 750 MG/150 ML BAG IV SCH (21:32)
[2016-10-13 05:11] LABS: Mean Cell Volume 89.2 fl (78-100); Mean Corpuscular Hemoglobin 27.2 pg (27-31); Mean Corpuscular Hgb Conc 30.5 g/dl (32-36); Neutrophil # 4.1 K/mm3 (1.3-6.0); Platelet Count 185 K/mm3 (150-450); Red Blood Count 2.68 M/mm3 (4.2-5.4); Red Cell Distribution Width 15.5 % (11.5-14.0); White Blood Count 5.7 K/mm3 (4.0-10.5)
[2016-10-13 05:24] LABS: BUN/Creatinine Ratio 34.5 (9.0-21.6); Estimated Creat Clear 65.7
[2016-10-13 05:25] LABS: Anion Gap 9.4 mmol/L (6.8-13.8); Calcium * 7.1 mg/dL (7.9-10.9); Carbon Dioxide 25.5 mmol/L (24-32.6); Potassium 3.9 mmol/L (3.4-4.6)
[2016-10-13 05:32] LABS: Hematocrit 23.9 % (37.0-47.0); Hemoglobin 7.3 gm/dL (12.5-16.0)
--- NOTE | 2016-10-13 06:17 | PN ---
Subjective - Date and Time Seen Date: 10/13/16 Time: 06:15 Subjective Narrative: Ms. Harrington is alert and awake this am. Hgb down to 7.3 this am. No bloody stools noted according to nursing. Seen by Dr. Hoyt yesterday to luis alberto. GI bleed - recommended elective upper/lower endoscopy unless emergent need arises. Objective - Vitals Vitals: Last Vital Signs Temp 36.8 C 10/13/16 02:00 Pulse 80 10/13/16 02:00 Resp 18 10/13/16 02:00 BP 117/68 10/13/16 02:00 Pulse Ox 96 10/13/16 02:00 - Abnormal Lab Findings Abnormal Lab Findings: Abnormal Lab Results 10/12/16 10/12/16 10/12/16 Range/Units 05:59 05:59 05:59 RBC 3.14 L (4.2-5.4) M/mm3 Hgb 8.6 L (12.5-16.0) gm/dL Hct 27.9 L (37.0-47.0) % MCHC 30.8 L (32-36) g/dl RDW 15.4 H (11.5-14.0) % Immature Gran % (Auto) (0.001-0.429) % Immature Gran # (Auto) (0.000-0.0310) K/mm3 Band Neuts % (Manual) 17 H (0-2.0) % Lymphocytes % (20-51) % Lymphocytes % (Manual) 8 L (20-51) % Neutrophils # (Manual) 6.7 H (1.3-6.0) K/mm3 Lymphocytes # (1.5-3.5) k/mm3 Lymphocytes # (Manual) 0.7 L (1.5-3.5) k/mm3 Sodium (132-142) mmol/L Plasma Sodium (130-142) mmol/L Chloride 111 H (97-106) mmol/L Carbon Dioxide 23.8 L (24-32.6) mmol/L BUN 27 H (3-23) mg/dL BUN/Creatinine Ratio 45.0 H (9.0-21.6) Calcium 7.3 L (7.9-10.9) mg/dL Iron 34 L (35-120) mcg/dL TIBC 151 L (260-445) mcg/dL 10/13/16 10/13/16 Range/Units 05:05 05:05 RBC 2.68 L (4.2-5.4) M/mm3 Hgb 7.3 L* (12.5-16.0) gm/dL Hct 23.9 L* (37.0-47.0) % MCHC 30.5 L (32-36) g/dl RDW 15.5 H (11.5-14.0) % Immature Gran % (Auto) 3.90 H (0.001-0.429) % Immature Gran # (Auto) 0.22 H (0.000-0.0310) K/mm3 Band Neuts % (Manual) (0-2.0) % Lymphocytes % 17.3 L (20-51) % Lymphocytes % (Manual) (20-51) % Neutrophils # (Manual) (1.3-6.0) K/mm3 Lymphocytes # 1.0 L (1.5-3.5) k/mm3 Lymphocytes # (Manual) (1.5-3.5) k/mm3 Sodium 143 H (132-142) mmol/L Plasma Sodium 143 H (130-142) mmol/L Chloride 112 H (97-106) mmol/L Carbon Dioxide (24-32.6) mmol/L BUN (3-23) mg/dL BUN/Creatinine Ratio 34.5 H (9.0-21.6) Calcium 7.1 L (7.9-10.9) mg/dL Iron (35-120) mcg/dL TIBC (260-445) mcg/dL - Exam Constitutional: Present: Alert, Oriented x3, No distress ENT Exam: Present: normal ENT inspection, hearing grossly normal, dry mucous membranes. Absent: nasal congestion, nasal drainage Neck: Present: full range of motion, supple, normal inspection Breasts: Present: Exam deferred Respiratory: Present: lungs clear, no accessory muscle use, No wheezing Cardiovascular/Chest: Present: normal peripheral pulses, regular rate, rhythm, no chest tenderness, no murmur Abdomen: Present: Normal bowel sounds, soft, nontender /Rectal: Present: Exam deferred Extremity: Present: non-tender, normal inspection, no pedal edema Skin Exam: Present: warm/dry, no cyanosis Lymphatic: Present: no adenopathy Neurologic: Present: alert, normal mood/affect, oriented x 3, motor weakness Appearance: Present: appropriate appearance, appropriate insight Eye contact: Present: cooperative, good eye contact, normal speech, avoids eye contact Assessment/Plan - Problems/Diagnosis (1) Sepsis Problem: Acute Qualifiers: Sepsis type: sepsis due to unspecified organism Qualified Code(s): A41.9 - Sepsis, unspecified organism Narrative: Evidenced by mental status changes, Lactic acid, High HR & Respirations. received treatment according to Sepsis Protocol- Aggressive IVF hydration, IV antibiotics. Check CBC in am. Anticipate the LOS to be 3-5 days due to advanced age & cormobidities which can complicate recovery. (2) Pneumonia Problem: Acute Narrative: Continue meropenem and vanco. (3) GIB (gastrointestinal bleeding) Problem: Acute Narrative: Hgb has been dropping daily. No signs of active bleeding but hemoccult was positive. Dr. Hoyt consulted and recommended doing EGD/COL. on outpatient on an elective basis. This morning 7.3. Will Type & Crossmatch for 2 units of blood and transfuse when less hgb is less than 7.0. Continue serial H& H. Laboratory Tests 10/10/16 10/11/16 10/12/16 17:45 05:42 05:59 Hgb 11.0 L 9.2 L 8.6 L 10/13/16 05:05 Hgb 7.3 L* (4) Altered mental status Problem: Acute Qualifiers: Altered mental status type: delirium Qualified Code(s): R41.0 - Disorientation, unspecified Narrative: likely due to toxic /metabolic encephalopathy (5) UTI (urinary tract infection) Problem: Acute Narrative: Will await urine culture results. (6) Dehydration Problem: Acute (7) Lactic acidosis Problem: Acute Narrative: Likely due to sepsis. Values trending down. (8) HTN (hypertension) Problem: Chronic Qualifiers: Hypertension type: essential hypertension Qualified Code(s): I10 - Essential (primary) hypertension (9) HLD (hyperlipidemia) Problem: Chronic
[2016-10-13] MEDS: NORMAL SALINE 1,000 ML IV PRN ×2 (06:35→19:41)
[2016-10-13] MEDS: CALCIUM CARBONATE/VITAMIN D3 1 TAB TABLET PO SCH ×3 (06:36→20:47)
[2016-10-13] MEDS: traMADol HCL 50 MG TABLET PO SCH ×3 (06:36→20:55)
[2016-10-13] MEDS: DOCUSATE SODIUM 100 MG CAPSULE PO SCH ×3 (06:36→20:48)
[2016-10-13] MEDS: MAGNESIUM OXIDE 400 MG TABLET PO SCH ×3 (06:37→20:48)
[2016-10-13] MEDS: HEPARIN SODIUM,PORCINE 5,000 UNITS/ML VIAL SC SCH (08:47)
[2016-10-13] MEDS: predniSONE 10 MG TABLET PO SCH (08:47)
[2016-10-13] MEDS: FOLIC ACID 1 MG TABLET PO SCH (08:47)
[2016-10-13] MEDS: FERROUS SULFATE 325 MG TABLET PO SCH ×2 (08:47→20:49)
[2016-10-13] MEDS: CHOLECALCIFEROL 1,000 UNIT CAPSULE PO SCH (08:47)
[2016-10-13] MEDS: MEROPENEM 1 GM in NORMAL SALINE 100 ML IV SCH ×2 (09:39→22:24)
[2016-10-13] MEDS: PANTOPRAZOLE SODIUM 40 MG in NORMAL SALINE 100 ML IV SCH (10:10)
[2016-10-13 10:39] LABS: Hematocrit 26.1 % (37.0-47.0); Hemoglobin 8.1 gm/dL (12.5-16.0)
[2016-10-13] MEDS: VANCOMYCIN HCL 1.25 GM in DEXTROSE 5 % IN WATER 250 ML IV SCH ×2 (10:53)
--- NOTE | 2016-10-13 12:41 | PN ---
Subjective - Date and Time Seen Date: 10/13/16 Time: 12:39 Subjective Narrative: FU Anemia Pt getting a PICC line placed right now Objective Objective Narrative: Seems slightly more cogent today to the nurse hadoop administrator. Hgb down slightly to 8.1, VSS. Pulse up a little. - Vitals Vitals: Last Vital Signs Temp 37.0 C 10/13/16 11:06 Pulse 134 H 10/13/16 11:10 Resp 22 H 10/13/16 11:06 BP 134/76 10/13/16 11:06 Pulse Ox 95 10/13/16 11:06 - Abnormal Lab Findings Abnormal Lab Findings: Abnormal Lab Results 10/12/16 10/13/16 10/13/16 Range/Units 05:59 05:05 05:05 RBC 2.68 L (4.2-5.4) M/mm3 Hgb 7.3 L* (12.5-16.0) gm/dL Hct 23.9 L* (37.0-47.0) % MCHC 30.5 L (32-36) g/dl RDW 15.5 H (11.5-14.0) % Immature Gran % (Auto) 3.90 H (0.001-0.429) % Immature Gran # (Auto) 0.22 H (0.000-0.0310) K/mm3 Lymphocytes % 17.3 L (20-51) % Lymphocytes # 1.0 L (1.5-3.5) k/mm3 Sodium 143 H (132-142) mmol/L Plasma Sodium 143 H (130-142) mmol/L Chloride 112 H (97-106) mmol/L BUN/Creatinine Ratio 34.5 H (9.0-21.6) Calcium 7.1 L (7.9-10.9) mg/dL Iron 34 L (35-120) mcg/dL TIBC 151 L (260-445) mcg/dL 10/13/16 Range/Units 10:30 RBC (4.2-5.4) M/mm3 Hgb 8.1 L (12.5-16.0) gm/dL Hct 26.1 L (37.0-47.0) % MCHC (32-36) g/dl RDW (11.5-14.0) % Immature Gran % (Auto) (0.001-0.429) % Immature Gran # (Auto) (0.000-0.0310) K/mm3 Lymphocytes % (20-51) % Lymphocytes # (1.5-3.5) k/mm3 Sodium (132-142) mmol/L Plasma Sodium (130-142) mmol/L Chloride (97-106) mmol/L BUN/Creatinine Ratio (9.0-21.6) Calcium (7.9-10.9) mg/dL Iron (35-120) mcg/dL TIBC (260-445) mcg/dL Assessment/Plan - Problems/Diagnosis (1) Anemia Problem: Acute Qualifiers: Anemia type: unspecified type Qualified Code(s): D64.9 - Anemia, unspecified Narrative: Plan: Following.
--- NOTE | 2016-10-13 13:05 | OR ---
Anesthesia Pre Procedure Eval Pre Procedure Evaluation: Last Vital Signs Temp 37.0 C 10/13/16 11:06 Pulse 134 H 10/13/16 11:10 Resp 22 H 10/13/16 11:06 BP 134/76 10/13/16 11:06 Pulse Ox 95 10/13/16 11:06 O2 Oxygen Delivery Method Room Air PRE PROCEDURE EVALUATION:: DATE: 10/13/2016 TIME: 1210 INDICATIONS: Difficult venous access. Difficult blood draws. Sepsis and pneumonia. PAST MEDICAL HISTORY: Patient is a poor historian. Presents with sepsis and left lower lobe pneumonia. EXAM: Heart rate irregular. Rales bilaterally. Procedure explained to patient. Unsure of patient's ability to fully understand what the PICC line is used for. ASSESSMENT OF MEDICAL STATUS: No contraindication to PICC line placement. PLANNED PROCEDURE : Left antecubital PICC line placement under sterile technique. Home Medications: HOME MEDICATIONS Alendronate Sodium [Fosamax] 70 mg PO MO 11/29/12 [Last Taken 07/30/16 07:00] Simvastatin [Zocor] 40 mg PO HS 11/29/12 [Last Taken 08/04/16 19:00] ALPRAZolam [Xanax] 0.25 mg PO TID PRN 08/05/16 [Last Taken Unknown] Acetaminophen [Tylenol] 650 mg PO HS 08/05/16 [Last Taken 08/04/16 19:00] Acetaminophen [Tylenol] 650 mg PO QID PRN 08/05/16 [Last Taken 07/30/16 04:05] Calcium Carbonate [Jlyk-Unu-059] 1,250 mg PO 0700,1500,1900 08/05/16 [Last Taken 08/04/16 19:00] Cholecalciferol (Vitamin D3) [Vitamin D3] 2,000 unit PO DAILY 08/05/16 [Last Taken 08/04/16 07:00] Docusate Sodium [Doc-Q-Lace] 100 mg PO 0700,1500,1900 08/05/16 [Last Taken 08/04 19:00] Ferrous Sulfate [Iron] 325 mg PO BID 08/05/16 [Last Taken 08/04/16 19:00] Folic Acid 1 mg PO DAILY 08/05/16 [Last Taken 08/04/16 07:00] Magnesium 250 mg PO 0700,1500,1900 08/05/16 [Last Taken 08/04/16 19:00] azaTHIOprine [Imuran] 50 mg PO DAILY 08/05/16 [Last Taken 08/04/16 07:00] predniSONE [Prednisone] 10 mg PO DAILY 08/05/16 [Last Taken 08/04/16 07:00] traMADol HCL [Ultram] 50 mg PO 0700,1500,1900 08/05/16 [Last Taken 08/04/16 19: 00] Mupirocin 1 appl TP DAILY PRN 10/10/16 [Last Taken Unknown]
--- NOTE | 2016-10-13 13:10 | OR ---
Anesthesia Procedure Note - Anesthesia Procedure Note Narrative: Vital Signs - Last Taken Temp 37.0 C 10/13/16 11:06 Pulse 134 H 10/13/16 11:10 Resp 22 H 10/13/16 11:06 BP 134/76 10/13/16 11:06 Pulse Ox 95 10/13/16 11:06 O2 Oxygen Delivery Method Room Air 10/13/16 13:07 ANESTHESIA PROCEDURE NOTE Date of procedure: 10/13/2016. Time of procedure: 12:15. Performed by: Godwin Saleh CRNA Chopping Machine Operator: None . Preprocedure diagnosis: Difficult IV access. Sepsis. Left lower lobe pneumonia.. Post procedure diagnosis: Same. Procedure: PICC line insertion. Indications: Difficult IV access. Findings: Dual-lumen left antecubital PICC line placed under sterile technique. Unable to advance catheter into the superior vena cava. PICC line catheter taped in place. Flushes easily. Blood aspiration from both ports without difficulty. EBL: Minimal. Fluids: N/A. Specimen: N/A. Post procedure condition: The patient tolerated the procedure well. No complications were noted. Thank you for this consultation Godwin Saleh CRNA
[2016-10-13] MEDS ORDERED: HEPARIN SOD.,PORCINE 100 UNITS/ML ONE (16:13)
[2016-10-13 16:44] LABS: Hematocrit 25.7 % (37.0-47.0); Hemoglobin 8.1 gm/dL (12.5-16.0)
[2016-10-13 17:17] LABS: Prothrombin Time (Patient) 17.7 Seconds (9.4-11.4)
[2016-10-13 17:18] LABS: INR 1.7 INR (0.90-1.10)
[2016-10-13 17:37] LABS: Albumin * 1.7 gm/dl (3.4-5.0); Bilirubin Direct 0.1 mg/dL (0.0-0.3); Bilirubin, Total 0.2 mg/dL (0.0-1.1); Bilirubin,Indirect 0.1 mg/dL (0.1-0.7)
[2016-10-13] MEDS ORDERED: POTASSIUM PHOS,M-BASIC-D-BASIC 18 MM, ELECTROLYTE SOLUTION,INJ 20 ML, MULTIVIT INFUSN,A... IV SCH ×12 (17:45)
[2016-10-13 18:04] LABS: Iron 13 mcg/dL (35-120); Transferrin Sat. (% Sat.) 10 % (15-55)
[2016-10-13 18:10] LABS: Magnesium 2.5 mg/dL (1.2-2.8); Phosphorus 1.3 mg/dL (2.2-4.2)
[2016-10-13] MEDS: IRON SUCROSE COMPLEX 100 MG in NORMAL SALINE 100 ML IV SCH (20:49)
[2016-10-13] MEDS: SIMVASTATIN 40 MG TABLET PO SCH (20:51)
[2016-10-13] MEDS: ACETAMINOPHEN 325 MG TABLET PO SCH (20:55)
[2016-10-14 00:49] LABS: Hematocrit 23.4 % (37.0-47.0); Hemoglobin 7.3 gm/dL (12.5-16.0)
[2016-10-14 05:55] LABS: Hematocrit 24.1 % (37.0-47.0); Mean Cell Volume 87.6 fl (78-100); Mean Corpuscular Hemoglobin 26.9 pg (27-31); Mean Corpuscular Hgb Conc 30.7 g/dl (32-36); Mean Platelet Volume 9.1 fl (6.0-9.5); Platelet Count 213 K/mm3 (150-450); Red Blood Count 2.75 M/mm3 (4.2-5.4); Red Cell Distribution Width 15.4 % (11.5-14.0); White Blood Count 7.1 K/mm3 (4.0-10.5)
[2016-10-14 06:08] LABS: Albumin * 1.4 gm/dl (3.4-5.0); Anion Gap 12.2 mmol/L (6.8-13.8); Bilirubin, Total 0.3 mg/dL (0.0-1.1); Ca. Corrected For Albumin 8.8 mg/dL (8.4-10.2); Potassium 3.2 mmol/L (3.4-4.6); Total Protein 4.1 gm/dL (6.2-8.2)
[2016-10-14 06:11] LABS: Hemoglobin 7.4 gm/dL (12.5-16.0)
[2016-10-14 06:13] LABS: Total Cells Counted 100
[2016-10-14 06:44] LABS: Band 1 % (0-2.0); Immature Granulocyte 5 (0-1); Lymphocyte 20 % (20-51); Microcytosis 1+; Monocyte 2 % (0-9); Neutrophil 72 % (42-75); Neutrophil # 5.1 K/mm3 (1.3-6.0); Platelet Estimate Normal (NORMAL)
[2016-10-14 06:45] LABS: Poikilocytosis 1+
[2016-10-14] MEDS: NORMAL SALINE 1,000 ML IV PRN (06:50)
[2016-10-14] MEDS: CALCIUM CARBONATE/VITAMIN D3 1 TAB TABLET PO SCH ×3 (06:51→18:48)
[2016-10-14] MEDS: DOCUSATE SODIUM 100 MG CAPSULE PO SCH ×3 (06:51→18:49)
[2016-10-14] MEDS: MAGNESIUM OXIDE 400 MG TABLET PO SCH ×3 (06:53→18:49)
[2016-10-14] MEDS: traMADol HCL 50 MG TABLET PO SCH ×3 (06:54→20:21)
[2016-10-14] MEDS ORDERED: POTASSIUM PHOS,M-BASIC-D-BASIC 18 MM, ELECTROLYTE SOLUTION,INJ 20 ML, MULTIVIT INFUSN,A... IV SCH ×6 (07:30)
[2016-10-14] MEDS: predniSONE 10 MG TABLET PO SCH (08:27)
[2016-10-14] MEDS: FERROUS SULFATE 325 MG TABLET PO SCH ×2 (08:27→20:22)
[2016-10-14] MEDS: FOLIC ACID 1 MG TABLET PO SCH (08:27)
[2016-10-14] MEDS: CHOLECALCIFEROL 1,000 UNIT CAPSULE PO SCH (08:28)
[2016-10-14] MEDS ORDERED: FUROSEMIDE 10 MG/ML VIAL IV PRN (08:43)
[2016-10-14] MEDS ORDERED: POTASSIUM CHLORIDE 100 ML IV ONE (08:48)
[2016-10-14] MEDS: IRON SUCROSE COMPLEX 100 MG in NORMAL SALINE 100 ML IV SCH (09:17)
--- NOTE | 2016-10-14 09:38 | PN ---
Subjective - Date and Time Seen Date: 10/14/16 Time: 09:05 Subjective Narrative: doing MUCH better this am. more awake and alert - still sleepy but a definite improvement. difficulty with secretions not noticed as much this am. currently with TPN going. started on IV iron yesterday due to low iron panel. hgb 7.3 this am. has dropped 4 points since admission - surgery wishes a conservative approach due to her age and medical conditions. heart rate is increadibly labile - goes anywhere from 90 to 150. was only going up to 140 yesterday so this is an increase in 24 hours. K+ low at 3.2. urine culture enterococcus faecalis, VRE ruled out - currently on vanco and levaquin - which is sensitive. also with LLL pneumonia. wbc normal at 7.1. blood cultures negative at 48 hours x2. denies any chest pain, dyspnea. Objective - Review of Systems Generalized/Overall Review: Reports: Weakness EENTM: Reports: No Symptoms Reported Respiratory: Reports: No Symptoms Reported Cardiac: Reports: No Symptoms Reported Abdominal: Reports: No Symptoms Reported Genitourinary Symptoms: Reports: No Symptoms Reported Musculoskeletal Complaints: Reports: No Symptoms Reported Neurological: Reports: No Symptoms Reported Skin: Reports: No Symptoms Reported Endocrine: Reports: No Symptoms Reported Misc: All systems neg except as marked - Vitals Vitals: Last Vital Signs Temp 36.8 C 10/14/16 07:48 Pulse 133 H 10/14/16 07:48 Resp 20 10/14/16 07:48 BP 127/76 10/14/16 07:48 Pulse Ox 95 10/14/16 07:48 - Abnormal Lab Findings Abnormal Lab Findings: Abnormal Lab Results 10/13/16 10/13/16 10/13/16 Range/Units 06:00 10:30 16:20 RBC (4.2-5.4) M/mm3 Hgb 8.1 L (12.5-16.0) gm/dL Hct 26.1 L (37.0-47.0) % MCH (27-31) pg MCHC (32-36) g/dl RDW (11.5-14.0) % Immature Granulocytes (0-1) Lymphocytes # (Manual) (1.5-3.5) k/mm3 PT 17.7 H (9.4-11.4) Seconds INR (Anticoag Therapy) 1.70 H (0.90-1.10) INR PTT (Harrison) 86.0 H (24-32) Seconds Fibrinogen (202-388) mg/dL Potassium (3.4-4.6) mmol/L Chloride (97-106) mmol/L Carbon Dioxide (24-32.6) mmol/L BUN/Creatinine Ratio (9.0-21.6) Random Glucose (70-110) mg/dL Calcium (7.9-10.9) mg/dL Phosphorus (2.2-4.2) mg/dL Iron (35-120) mcg/dL TIBC (260-445) mcg/dL Transferrin % Sat (15-55) % ALT (19-67) U/L Total Protein (6.2-8.2) gm/dL Albumin (3.4-5.0) gm/dl Crossmatch See Detail 10/13/16 10/13/16 10/13/16 Range/Units 16:20 16:25 16:25 RBC (4.2-5.4) M/mm3 Hgb 8.1 L (12.5-16.0) gm/dL Hct 25.7 L (37.0-47.0) % MCH (27-31) pg MCHC (32-36) g/dl RDW (11.5-14.0) % Immature Granulocytes (0-1) Lymphocytes # (Manual) (1.5-3.5) k/mm3 PT (9.4-11.4) Seconds INR (Anticoag Therapy) (0.90-1.10) INR PTT (Harrison) (24-32) Seconds Fibrinogen 464 H (202-388) mg/dL Potassium (3.4-4.6) mmol/L Chloride (97-106) mmol/L Carbon Dioxide (24-32.6) mmol/L BUN/Creatinine Ratio (9.0-21.6) Random Glucose (70-110) mg/dL Calcium (7.9-10.9) mg/dL Phosphorus (2.2-4.2) mg/dL Iron (35-120) mcg/dL TIBC (260-445) mcg/dL Transferrin % Sat (15-55) % ALT 18 L (19-67) U/L Total Protein 4.0 L (6.2-8.2) gm/dL Albumin 1.7 L (3.4-5.0) gm/dl Crossmatch 10/13/16 10/13/16 10/14/16 Range/Units 16:25 16:25 00:30 RBC (4.2-5.4) M/mm3 Hgb 7.3 L* (12.5-16.0) gm/dL Hct 23.4 L* (37.0-47.0) % MCH (27-31) pg MCHC (32-36) g/dl RDW (11.5-14.0) % Immature Granulocytes (0-1) Lymphocytes # (Manual) (1.5-3.5) k/mm3 PT (9.4-11.4) Seconds INR (Anticoag Therapy) (0.90-1.10) INR PTT (Daniel) (24-32) Seconds Fibrinogen (202-388) mg/dL Potassium (3.4-4.6) mmol/L Chloride (97-106) mmol/L Carbon Dioxide (24-32.6) mmol/L BUN/Creatinine Ratio (9.0-21.6) Random Glucose (70-110) mg/dL Calcium (7.9-10.9) mg/dL Phosphorus 1.3 L (2.2-4.2) mg/dL Iron 13 L (35-120) mcg/dL TIBC 135 L (260-445) mcg/dL Transferrin % Sat 10 L (15-55) % ALT (19-67) U/L Total Protein (6.2-8.2) gm/dL Albumin (3.4-5.0) gm/dl Crossmatch 10/14/16 10/14/16 Range/Units 05:05 05:05 RBC 2.75 L (4.2-5.4) M/mm3 Hgb 7.4 L* (12.5-16.0) gm/dL Hct 24.1 L (37.0-47.0) % MCH 26.9 L (27-31) pg MCHC 30.7 L (32-36) g/dl RDW 15.4 H (11.5-14.0) % Immature Granulocytes 5 H (0-1) Lymphocytes # (Manual) 1.4 L (1.5-3.5) k/mm3 PT (9.4-11.4) Seconds INR (Anticoag Therapy) (0.90-1.10) INR PTT (Harrison) (24-32) Seconds Fibrinogen (202-388) mg/dL Potassium 3.2 L (3.4-4.6) mmol/L Chloride 110 H (97-106) mmol/L Carbon Dioxide 23.0 L (24-32.6) mmol/L BUN/Creatinine Ratio 25.0 H (9.0-21.6) Random Glucose 65 L (70-110) mg/dL Calcium 7.0 L (7.9-10.9) mg/dL Phosphorus (2.2-4.2) mg/dL Iron (35-120) mcg/dL TIBC (260-445) mcg/dL Transferrin % Sat (15-55) % ALT 17 L (19-67) U/L Total Protein 4.1 L (6.2-8.2) gm/dL Albumin 1.4 L (3.4-5.0) gm/dl Crossmatch - Exam Constitutional: Present: Alert, Cooperative, No distress, Elderly ENT Exam: Present: hearing grossly normal Neck: Present: full range of motion, supple Breasts: Present: Exam deferred Respiratory: Present: chest non-tender, lungs clear, no respiratory distress Cardiovascular/Chest: Present: regular rate, rhythm, no chest tenderness, tachycardia Abdomen: Present: soft, nontender, nondistended /Rectal: Present: Exam deferred Extremity: Present: non-tender, normal inspection Skin Exam: Present: warm/dry, no cyanosis Neurologic: Present: alert Cauti Physician Documentation - Urinary Catheter Management Straight Urethral Indwelling: No Assessment/Plan Plan Narrative: anemia - hgb low, vital signs unstable - will transfuse 2 units PRBCs. lasix 20 mg IV in between units. poor oral intake. difficulty handling secretions - although today is better. ? cause. CT of the head yesterday negative for acute change. TPN started today. consult speech therapy to assess swallowing ability and provide recommendations. will allow ice chips prn. unable to place NG tube yesterday. K+ low - 10 meq given IV, especially since lasix iv will be given between units of blood. recheck labs in am. LLL Pneumonia - continue abx. UTI - final culture back and sensitive to abx she is on. sepsis - awaiting final blood culture results. Code status - Full Code - no family. no friends in the area. contact is the alf she came from. VTE: contraindicated due to GI Bleed. - Problems/Diagnosis (1) Anemia Problem: Acute Qualifiers: Anemia type: unspecified type Qualified Code(s): D64.9 - Anemia, unspecified (2) Hypokalemia Problem: Acute (3) Inadequate oral nutritional intake Problem: Acute (4) At risk for aspiration Problem: Acute (5) Altered mental status Problem: Acute Qualifiers: Altered mental status type: delirium Qualified Code(s): R41.0 - Disorientation, unspecified (6) Dehydration Problem: Acute (7) GIB (gastrointestinal bleeding) Problem: Acute Qualifiers: GI bleed type/associated pathology: unspecified gastrointestinal hemorrhage type Qualified Code(s): K92.2 - Gastrointestinal hemorrhage, unspecified (8) Lactic acidosis Problem: Acute (9) Pneumonia Problem: Acute Qualifiers: Pneumonia type: due to unspecified organism Laterality: left Lung location: lower lobe of lung Qualified Code(s): J18.1 - Lobar pneumonia, unspecified organism (10) Sepsis Problem: Acute Qualifiers: Sepsis type: sepsis due to unspecified organism Qualified Code(s): A41.9 - Sepsis, unspecified organism (11) UTI (urinary tract infection) Problem: Acute Qualifiers: Urinary tract infection type: acute cystitis Hematuria presence: with hematuria Qualified Code(s): N30.01 - Acute cystitis with hematuria (12) HLD (hyperlipidemia) Problem: Chronic Qualifiers: Hyperlipidemia type: unspecified Qualified Code(s): E78.5 - Hyperlipidemia , unspecified (13) HTN (hypertension) Problem: Chronic Qualifiers: Hypertension type: essential hypertension Qualified Code(s): I10 - Essential (primary) hypertension
[2016-10-14] MEDS ORDERED: VANCOMYCIN HCL LEVEL XX ONE (10:30)
[2016-10-14 10:32] LABS: Hematocrit 26.3 % (37.0-47.0); Hemoglobin 8.4 gm/dL (12.5-16.0)
--- NOTE | 2016-10-14 10:54 | PN ---
Subjective - Date and Time Seen Date: 10/14/16 Time: 10:50 Subjective Narrative: LENCHO GARCES Pt is awake and alert and delightful. No c/o Objective Objective Narrative: Pale. Abdomen soft, nontender - Vitals Vitals: Last Vital Signs Temp 36.8 C 10/14/16 07:48 Pulse 133 H 10/14/16 07:48 Resp 20 10/14/16 07:48 BP 127/76 10/14/16 07:48 Pulse Ox 95 10/14/16 07:48 - Abnormal Lab Findings Abnormal Lab Findings: Abnormal Lab Results 10/13/16 10/13/16 10/13/16 Range/Units 06:00 16:20 16:20 RBC (4.2-5.4) M/mm3 Hgb (12.5-16.0) gm/dL Hct (37.0-47.0) % MCH (27-31) pg MCHC (32-36) g/dl RDW (11.5-14.0) % Immature Granulocytes (0-1) Lymphocytes # (Manual) (1.5-3.5) k/mm3 PT 17.7 H (9.4-11.4) Seconds INR (Anticoag Therapy) 1.70 H (0.90-1.10) INR PTT ([place]) 86.0 H (24-32) Seconds Fibrinogen 464 H (202-388) mg/dL Potassium (3.4-4.6) mmol/L Chloride (97-106) mmol/L Carbon Dioxide (24-32.6) mmol/L BUN/Creatinine Ratio (9.0-21.6) Random Glucose (70-110) mg/dL Calcium (7.9-10.9) mg/dL Phosphorus (2.2-4.2) mg/dL Iron (35-120) mcg/dL TIBC (260-445) mcg/dL Transferrin % Sat (15-55) % ALT (19-67) U/L Total Protein (6.2-8.2) gm/dL Albumin (3.4-5.0) gm/dl Crossmatch See Detail 10/13/16 10/13/16 10/13/16 Range/Units 16:25 16:25 16:25 RBC (4.2-5.4) M/mm3 Hgb 8.1 L (12.5-16.0) gm/dL Hct 25.7 L (37.0-47.0) % MCH (27-31) pg MCHC (32-36) g/dl RDW (11.5-14.0) % Immature Granulocytes (0-1) Lymphocytes # (Manual) (1.5-3.5) k/mm3 PT (9.4-11.4) Seconds INR (Anticoag Therapy) (0.90-1.10) INR PTT ([place]) (24-32) Seconds Fibrinogen (202-388) mg/dL Potassium (3.4-4.6) mmol/L Chloride (97-106) mmol/L Carbon Dioxide (24-32.6) mmol/L BUN/Creatinine Ratio (9.0-21.6) Random Glucose (70-110) mg/dL Calcium (7.9-10.9) mg/dL Phosphorus 1.3 L (2.2-4.2) mg/dL Iron (35-120) mcg/dL TIBC (260-445) mcg/dL Transferrin % Sat (15-55) % ALT 18 L (19-67) U/L Total Protein 4.0 L (6.2-8.2) gm/dL Albumin 1.7 L (3.4-5.0) gm/dl Crossmatch 10/13/16 10/14/16 10/14/16 Range/Units 16:25 00:30 05:05 RBC 2.75 L (4.2-5.4) M/mm3 Hgb 7.3 L* 7.4 L* (12.5-16.0) gm/dL Hct 23.4 L* 24.1 L (37.0-47.0) % MCH 26.9 L (27-31) pg MCHC 30.7 L (32-36) g/dl RDW 15.4 H (11.5-14.0) % Immature Granulocytes 5 H (0-1) Lymphocytes # (Manual) 1.4 L (1.5-3.5) k/mm3 PT (9.4-11.4) Seconds INR (Anticoag Therapy) (0.90-1.10) INR PTT ([place]) (24-32) Seconds Fibrinogen (202-388) mg/dL Potassium (3.4-4.6) mmol/L Chloride (97-106) mmol/L Carbon Dioxide (24-32.6) mmol/L BUN/Creatinine Ratio (9.0-21.6) Random Glucose (70-110) mg/dL Calcium (7.9-10.9) mg/dL Phosphorus (2.2-4.2) mg/dL Iron 13 L (35-120) mcg/dL TIBC 135 L (260-445) mcg/dL Transferrin % Sat 10 L (15-55) % ALT (19-67) U/L Total Protein (6.2-8.2) gm/dL Albumin (3.4-5.0) gm/dl Crossmatch 10/14/16 Range/Units 05:05 RBC (4.2-5.4) M/mm3 Hgb (12.5-16.0) gm/dL Hct (37.0-47.0) % MCH (27-31) pg MCHC (32-36) g/dl RDW (11.5-14.0) % Immature Granulocytes (0-1) Lymphocytes # (Manual) (1.5-3.5) k/mm3 PT (9.4-11.4) Seconds INR (Anticoag Therapy) (0.90-1.10) INR PTT ([place]) (24-32) Seconds Fibrinogen (202-388) mg/dL Potassium 3.2 L (3.4-4.6) mmol/L Chloride 110 H (97-106) mmol/L Carbon Dioxide 23.0 L (24-32.6) mmol/L BUN/Creatinine Ratio 25.0 H (9.0-21.6) Random Glucose 65 L (70-110) mg/dL Calcium 7.0 L (7.9-10.9) mg/dL Phosphorus (2.2-4.2) mg/dL Iron (35-120) mcg/dL TIBC (260-445) mcg/dL Transferrin % Sat (15-55) % ALT 17 L (19-67) U/L Total Protein 4.1 L (6.2-8.2) gm/dL Albumin 1.4 L (3.4-5.0) gm/dl Crossmatch Cauti Physician Documentation - Urinary Catheter Management Straight Urethral Indwelling: No Assessment/Plan - Problems/Diagnosis (1) Anemia Problem: Acute Qualifiers: Anemia type: unspecified type Qualified Code(s): D64.9 - Anemia, unspecified Narrative: Transfusion requirement noted. Case d/w MORPHOLOGY TEACHER. Coagulopathy noted and being addressed.
[2016-10-14] MEDS: MEROPENEM 1 GM in NORMAL SALINE 100 ML IV SCH ×2 (14:48→22:39)
[2016-10-14] MEDS: PANTOPRAZOLE SODIUM 40 MG in NORMAL SALINE 100 ML IV SCH (15:53)
--- NOTE | 2016-10-14 15:57 | OR ---
Anesthesia Procedure Note - Anesthesia Procedure Note Narrative: Vital Signs - Last Taken Temp 37.0 C 10/14/16 14:00 Pulse 86 10/14/16 14:00 Resp 18 10/14/16 14:00 BP 110/44 10/14/16 14:00 Pulse Ox 98 10/14/16 14:00 O2 Oxygen Delivery Method Room Air 10/14/16 15:55 ANESTHESIA PROCEDURE NOTE Date of procedure: 10/14/2016. Time of procedure: 1245. Performed by: Godwin Saleh CRNA Car Installations Supervisor: . Preprocedure diagnosis: Left antecubital PICC line insertion site is leaking. Post procedure diagnosis: Same. Procedure: Evaluate PICC line for patency and effectiveness Indications: Leaking at PICC line insertion site. Findings: Indwelling left antecubital PICC line was flushed and a large amount of leaking was noted around the insertion site. PICC line was removed intact. Hospitalist notified. EBL: Minimal. Fluids: N/A. Specimen: N/A. Post procedure condition: The patient tolerated the procedure well. No complications were noted. Thank you for this consultation Godwin Saleh CRNA
[2016-10-14] MEDS: VANCOMYCIN HCL 1.5 GM in DEXTROSE 5 % IN WATER 500 ML IV SCH ×2 (16:01)
--- NOTE | 2016-10-14 16:02 | OR ---
Anesthesia Procedure Note - Anesthesia Procedure Note Narrative: Vital Signs - Last Taken Temp 37.0 C 10/14/16 14:00 Pulse 86 10/14/16 14:00 Resp 18 10/14/16 14:00 BP 110/44 10/14/16 14:00 Pulse Ox 98 10/14/16 14:00 O2 Oxygen Delivery Method Room Air 10/14/16 15:57 ANESTHESIA PROCEDURE NOTE Date of procedure: 10/14/2016. Time of procedure: 1530. Performed by: Godwin Saleh CRNA [employer] Attendant: None . Preprocedure diagnosis: Difficult IV access. Need for long-term fluids and antibiotics. Patient on TPN therapy. Post procedure diagnosis: Same. Procedure: Assessment for right antecubital PICC line insertion. Indications: Desired PICC line placement.. Findings: Ultrasound used and right antecubital fossa and right upper arm in an attempt to identify venous access for PICC line placement. Unable to locate any vein large enough for cannulation. The 22-gauge Angiocath IV was started in the patient's left foot. A 20-gauge Angiocath IV was started in the patient' s right foot. EBL: Minimal. Fluids: N/A. Specimen: N/A. Post procedure condition: The patient tolerated the procedure well. No complications were noted. Thank you for this consultation Godwin Saleh CRNA
[2016-10-14] MEDS: VANCOMYCIN HCL 1.25 GM in DEXTROSE 5 % IN WATER 250 ML IV SCH ×2 (16:07)
[2016-10-14] MEDS: SIMVASTATIN 40 MG TABLET PO SCH (20:22)
[2016-10-14] MEDS: ACETAMINOPHEN 325 MG TABLET PO SCH (20:23)
[2016-10-14] MEDS: LEVOFLOXACIN/D5W 750 MG/150 ML BAG IV SCH (23:25)
[2016-10-15] MEDS ORDERED: LIDOCAINE HCL 100 APPL BTL MM ONE (03:04)
[2016-10-15] MEDS ORDERED: LIDOCAINE HCL 20 ML UDC ONE (05:47)
[2016-10-15 05:50] LABS: Hematocrit 31.5 % (37.0-47.0); Hemoglobin 10.5 gm/dL (12.5-16.0); Mean Cell Volume 84.5 fl (78-100); Mean Corpuscular Hemoglobin 28.2 pg (27-31); Mean Corpuscular Hgb Conc 33.3 g/dl (32-36); Mean Platelet Volume 9.2 fl (6.0-9.5); Platelet Count 196 K/mm3 (150-450); Red Blood Count 3.73 M/mm3 (4.2-5.4); Red Cell Distribution Width 14.8 % (11.5-14.0); White Blood Count 7.4 K/mm3 (4.0-10.5)
[2016-10-15 06:02] LABS: Total Cells Counted 100
[2016-10-15 06:10] LABS: Albumin * 1.5 gm/dl (3.4-5.0); Anion Gap 11.6 mmol/L (6.8-13.8); BUN/Creatinine Ratio 19.2 (9.0-21.6); Bilirubin, Total 0.5 mg/dL (0.0-1.1); Ca. Corrected For Albumin 8.6 mg/dL (8.4-10.2); Calcium * 6.9 mg/dL (7.9-10.9); Carbon Dioxide 25.1 mmol/L (24-32.6); Potassium 2.7 mmol/L (3.4-4.6); Total Protein 4.2 gm/dL (6.2-8.2)
[2016-10-15 06:37] LABS: Band 7 % (0-2.0); Immature Granulocyte 1 (0-1); Lymphocyte 11 % (20-51); Monocyte 9 % (0-9); Neutrophil 72 % (42-75); Neutrophil # 5.3 K/mm3 (1.3-6.0); Platelet Estimate Normal (NORMAL); RBC Morphology Normal (NORMAL)
[2016-10-15] MEDS: DOCUSATE SODIUM 100 MG CAPSULE PO SCH ×2 (06:55→15:56)
[2016-10-15] MEDS: MAGNESIUM OXIDE 400 MG TABLET PO SCH ×2 (06:55→15:56)
[2016-10-15] MEDS: CALCIUM CARBONATE/VITAMIN D3 1 TAB TABLET PO SCH ×2 (06:55→15:56)
[2016-10-15] MEDS: traMADol HCL 50 MG TABLET PO SCH ×2 (06:57→15:56)
[2016-10-15] MEDS ORDERED: ALENDRONATE SODIUM 70 MG TABLET PO SCH (07:00)
[2016-10-15] MEDS ORDERED: POTASSIUM PHOS,M-BASIC-D-BASIC 18 MM, ELECTROLYTE SOLUTION,INJ 20 ML, MULTIVIT INFUSN,A... IV SCH ×6 (07:30)
--- NOTE | 2016-10-15 08:05 | PN ---
Subjective - Date and Time Seen Date: 10/15/16 Time: 07:58 Subjective Narrative: Patient is AAO x 2. LUE swollen. Tachycardic. Objective - Review of Systems Generalized/Overall Review: Denies: Chills, Fever EENTM: Reports: No Symptoms Reported Respiratory: Denies: Cough, Shortness of Breath Cardiac: Denies: Chest Pain, Edema, Palpitations Abdominal: Denies: Nausea, Vomiting Genitourinary Symptoms: Denies: Urgency, Frequency - Vitals Vitals: Last Vital Signs Temp 36.3 C L 10/15/16 06:45 Pulse 89 10/15/16 06:45 Resp 16 10/15/16 06:45 BP 130/71 10/15/16 06:45 Pulse Ox 99 10/15/16 06:45 - Abnormal Lab Findings Abnormal Lab Findings: Abnormal Lab Results 10/13/16 10/14/16 10/15/16 Range/Units 06:00 10:25 05:40 RBC 3.73 L (4.2-5.4) M/mm3 Hgb 8.4 L 10.5 L (12.5-16.0) gm/dL Hct 26.3 L 31.5 L (37.0-47.0) % RDW 14.8 H (11.5-14.0) % Band Neuts % (Manual) 7 H (0-2.0) % Lymphocytes % (Manual) 11 L (20-51) % Lymphocytes # (Manual) 0.8 L (1.5-3.5) k/mm3 Potassium (3.4-4.6) mmol/L Chloride (97-106) mmol/L Calcium (7.9-10.9) mg/dL ALT (19-67) U/L Total Protein (6.2-8.2) gm/dL Albumin (3.4-5.0) gm/dl Crossmatch See Detail 10/15/16 Range/Units 05:40 RBC (4.2-5.4) M/mm3 Hgb (12.5-16.0) gm/dL Hct (37.0-47.0) % RDW (11.5-14.0) % Band Neuts % (Manual) (0-2.0) % Lymphocytes % (Manual) (20-51) % Lymphocytes # (Manual) (1.5-3.5) k/mm3 Potassium 2.7 L (3.4-4.6) mmol/L Chloride 107 H (97-106) mmol/L Calcium 6.9 L (7.9-10.9) mg/dL ALT 18 L (19-67) U/L Total Protein 4.2 L (6.2-8.2) gm/dL Albumin 1.5 L (3.4-5.0) gm/dl Crossmatch - Exam Constitutional: Present: Alert - AAO x 2, Cooperative ENT Exam: Present: hearing grossly normal Neck: Present: supple Respiratory: Present: decreased breath sounds, No wheezing Cardiovascular/Chest: Present: regular rate, rhythm, no JVD, no murmur, tachycardia Abdomen: Present: Normal bowel sounds, soft, nontender, nondistended Extremity: Present: no calf tenderness, pedal edema Cauti Physician Documentation - Urinary Catheter Management Straight Urethral Indwelling: No Assessment/Plan - Problems/Diagnosis (1) Left upper extremity swelling Problem: Acute Narrative: r/o DVT. will get US of the LUE. ADDENDUM: Positive DVT- Anticoagulation contraindicated due to recent GIB. (2) Sepsis Problem: Resolved Qualifiers: Sepsis type: sepsis due to unspecified organism Qualified Code(s): A41.9 - Sepsis, unspecified organism (3) Pneumonia Problem: Acute Qualifiers: Pneumonia type: due to unspecified organism Laterality: left Lung location: lower lobe of lung Qualified Code(s): J18.1 - Lobar pneumonia, unspecified organism Narrative: on IV antibiotics (4) Altered mental status Problem: Acute Qualifiers: Altered mental status type: delirium Qualified Code(s): R41.0 - Disorientation, unspecified Narrative: improved on top of underlying Dementia (5) Lactic acidosis Problem: Acute (6) HTN (hypertension) Problem: Chronic Qualifiers: Hypertension type: essential hypertension Qualified Code(s): I10 - Essential (primary) hypertension (7) Bullous pemphigoid Problem: Chronic (8) Anemia Problem: Acute Qualifiers: Anemia type: unspecified type Qualified Code(s): D64.9 - Anemia, unspecified Narrative: Hb up to 10.4 after 2 units of PRBC. (9) UTI (urinary tract infection) Problem: Acute Qualifiers: Urinary tract infection type: acute cystitis Hematuria presence: with hematuria Qualified Code(s): N30.01 - Acute cystitis with hematuria Narrative: Enterococcus on C & S to Jen.
[2016-10-15] MEDS ORDERED: predniSONE 5 MG TABLET PO SCH (08:08)
[2016-10-15] MEDS: CHOLECALCIFEROL 1,000 UNIT CAPSULE PO SCH (08:46)
[2016-10-15] MEDS: POTASSIUM CHLORIDE 20 MEQ TABLET.SA PO SCH ×3 (08:46→16:39)
[2016-10-15] MEDS: FOLIC ACID 1 MG TABLET PO SCH (08:46)
[2016-10-15] MEDS: FERROUS SULFATE 325 MG TABLET PO SCH (08:47)
[2016-10-15] MEDS: LIDOCAINE HCL 100 APPL BTL MM SCH ×2 (08:47→20:07)
[2016-10-15] MEDS: IRON SUCROSE COMPLEX 100 MG in NORMAL SALINE 100 ML IV SCH (08:47)
[2016-10-15] MEDS: MEROPENEM 1 GM in NORMAL SALINE 100 ML IV SCH (09:08)
[2016-10-15] MEDS ORDERED: SACCHAROMYCES BOULARDII 250 MG CAPSULE PO SCH (09:30)
[2016-10-15] MEDS: PANTOPRAZOLE SODIUM 40 MG in NORMAL SALINE 100 ML IV SCH (09:57)
[2016-10-15] MEDS: VANCOMYCIN HCL 1.5 GM in DEXTROSE 5 % IN WATER 500 ML IV SCH ×2 (10:29)
[2016-10-15] MEDS ORDERED: ENOXAPARIN SODIUM 40 MG/0.4 ML SYRG SC ONE (13:37)
[2016-10-15] MEDS ORDERED: FUROSEMIDE 10 MG/ML VIAL ONE (13:37)
[2016-10-15] MEDS ORDERED: POLYVINYL ALCOHOL 150 DROP BTL EACHEYE PRN (13:56)
[2016-10-15] MEDS ORDERED: ATROPINE SULFATE 150 DROP BTL SL PRN (13:56)
[2016-10-15] MEDS ORDERED: ENOXAPARIN SODIUM 60 MG/0.6 ML SYRG SC SCH (14:00)
[2016-10-15] MEDS ORDERED: FUROSEMIDE 10 MG/ML VIAL IV ONE (14:15)
[2016-10-15 14:51] VITALS: BP 67/43
[2016-10-15] MEDS: LORazepam 2 MG/ML DISP.SYRIN IV PRN ×2 (15:40→16:45)
[2016-10-15] MEDS: HYDROmorphone HCL 1 MG/ML DISP.SYRIN IV PRN ×5 (15:40→17:33)
[2016-10-15] MEDS ORDERED: HYDROmorphone HCL 2 MG/ML VIAL IV PRN (18:16)
[2016-10-15] MEDS: MORPHINE SULFATE 10 MG/0.5 ML SYRINGE PO PRN ×3 (18:45→21:01)
[2016-10-15] MEDS ORDERED: LORazepam 2 MG/ML DISP.SYRIN IM ONE (18:56)
[2016-10-15] MEDS ORDERED: LORazepam 2 MG/ML DISP.SYRIN IV ONE (19:30)
[2016-10-15] MEDS ORDERED: LORazepam 1 MG TABLET PO SCH (21:15)
[2016-10-17] MEDS ORDERED: VANCOMYCIN HCL LEVEL XX ONE (10:30)
--- NOTE | 2016-10-22 07:17 | DS ---
Discharge Summary - Provider Primary Care Provider: Mag Mack Admitting Clinician: Nery Mcrae Attending Physician on Admission: Mag Mack - Date and Time Date of : 10/15/16 Time of : 21:15 - Diagnosis/Cause of (1) Pulmonary embolism Problems: Acute (2) Deep vein thrombosis (DVT) of upper extremity Problems: Acute (3) Sepsis Problems: Resolved (4) UTI (urinary tract infection) Problems: Acute (5) Pneumonia Problems: Acute (6) Altered mental status Problems: Acute (7) Lactic acidosis Problems: Acute (8) HTN (hypertension) Problems: Chronic (9) Bullous pemphigoid Problems: Chronic (10) Anemia Problems: Acute (11) GIB (gastrointestinal bleeding) Problems: Acute - Summary Details (narrative): Irena Harrington , is a 81-yr-old pt, [place] resident, with a PMH of: Anemia, Anxiety , Athritis, Dementia, HLD, HTN, Osteoarthritis & Osteoporosis, Bullous Penphigoid. History was unobtainable from the pt due to cognitive/memory impairment. She was a [facility] care resident at [facility]. Nursing staff reported that pt had not been herself lately. Even though she was wheel chair bound, she normally propelled herself around and interacted with staff and fellow residents. On the morning of admisson of 10/10/2016, , nursing stated that pt was more lethargic and that for the last two days, she had been more confused and had had poor appetite. Her v.s were stable at the [facility], however, she was noted to have black stool with streaks of blood in it. Off note, she was admitted on 08/05/16 for Pneumonia and received treatment with Levaquin and Cefepime. During evaluation at the ED, the CXR obtained showed Pneumonia. Even though there was no Leukocytosis on CBC, she had elevated neutrophils. Her Lactic Acid was elevated at 4.0. She was admitted and was started on IV antibiotics and IVF for sepsis with likely foci comniong form Pneumonia and UTI. She was also immunocompromised from her immuran and prednisone. Clinically she improved from Vanco and Meropenem. Her UA grew Enterococcus Fecalis , VRE rule out sensitive to her IV antibiotics. Her H/H creeped down and anemia work up was done. She had a positive occult blood but could also have been dilutional from her IVF under sepsis protocol.Surgery was consulted and they felt it coud be worked with upper and lower endoscsopies on an elective basis. Her iron levels were low. She became more tachycardic and she received 2 units of PRBC's. Her DVT prophylaxis was stopped due to her possible GIB. She had a PICC line placed for blood draws and TPN but was eventually removed due to leakage. Her LUE was more swollen than the other limbs on the morning of her demise. An US of the LUE showed a DVT. Since there was recent probable GIB , anticoagulation was not started. In the early afternoon of her demise, she desaturated acutely likely due to acute pulmonary embolism. She became hemodynamically unstable despite therapeutic dose of Lovenox and IV lasix were given. She had no living relatives around. She was then made a DNR by me and the attending PUBLIC STENOGRAPHER. She was continued with comfort measures and finally on at 2115. Procedures Performed: see notes below Procedure Performed: PICC line insertion - Additional Data Confirmation of as documented by pronouncing clinician: no pulse, no respirations, no heart sounds, pupils fixed and dilated Additional persons at bedside: other - no living relatives Attending/PCP notified: Yes Was code activated: No Autopsy requested: No Foiling Machine Operator notified: Yes Organ Bank notified: Yes Advance Directives: No Hospice patient: No
== END 2016-10-15 21:15 | disposition expired | DRG 871 ==
LOC: ER 17:22 → MS 18:52
PROVIDERS: ADMIT Nurse Practitioner Critical Care Medicine; ATTEND Internal Medicine
PROC: 0XH Anatomical Regions, Upper Extremities, Insertion (ICD-10-PCS; principal; 2016-10-13)
DX: A41.9 Sepsis, unspecified organism (principal); J18.1 Lobar pneumonia, unspecified organism; G92 Toxic encephalopathy; I26.99 Other pulmonary embolism without acute cor pulmonale; I82.622 Acute embolism and thrombosis of deep veins of left upper extremity; E87.2 Acidosis; K92.2 Gastrointestinal hemorrhage, unspecified; L12.0 Bullous pemphigoid; N39.0 Urinary tract infection, site not specified; B95.2 Enterococcus as the cause of diseases classified elsewhere; E87.6 Hypokalemia; R41.82 Altered mental status, unspecified; E86.0 Dehydration; D64.9 Anemia, unspecified; I10 Essential (primary) hypertension; E78.5 Hyperlipidemia, unspecified; Z79.52 Long term (current) use of systemic steroids
CPT/HCPCS: 36415; 70450; 71010; 74020; 80048; 80053; 80076; 80202; 81001; 81241; 82150; 82272; 82465; 82607; 82746; 83540; 83550; 83605; 83690; 83735; 84100; 84145; 84466; 84478; 84484; 85007; 85014; 85018; 85025; 85240; 85384; 85610; 85652; 85675; 85730; 86140; 86850; 86900; 87040; 87077; 87081; 87086; 87186; 89220; 92610; 93005; 93971; 96365; 99283; P9016